=== PATIENT | female | born 1935 | race Caucasian/White ===

== ENCOUNTER 2021-09-11 11:29 | Emergency (ER) | payer MEDICARE ==
[~2021-09-11] VITALS: Ht 162.6 cm; Wt 92.5 kg
[~2021-09-11 11:29] MED LIST: AMLO-257 PO; APIX5TAB PO; ASPI-556 PO; DORZ10DR10 OP; FOLI1TAB85 PO; FURO20TA6 PO; GLIP-162 PO; L-THYROXINE PO; LATA2.5D14 OP; LOSA25TA41 PO; METO50 PO; OMEP20TA2 PO; ROSU20TA23 PO; VIT D PO; VIT1CAPS47 PO
[2021-09-11 12:22] LABS: BASOPHILS % (AUTO) 0.2 % (0.0-5.0); HEMATOCRIT 28.7 % (36-48); LYMPHOCYTES % (AUTO) 18.8 % (21.0-51.0); MEAN CORPUSCULAR HEMOGLOBIN 29.3 pg (27.0-33.0); MEAN CORPUSCULAR HGB CONC 33.1 g/dL (32.0-36.0); MEAN CORPUSCULAR VOLUME 88.6 fL (79-99); MONOCYTES % (AUTO) 8.8 % (3.0-13.0); PLATELET COUNT (AUTO) 143 K/uL (130-400); RED BLOOD CELL COUNT(AUTO) 3.24 MIL/uL (4.00-5.50); RED CELL DISTRIBUTION WIDTH 13.6 % (11.0-15.5)
[2021-09-11 12:29] LABS: APPEARANCE,URINE CLOUDY (CLEAR); BILIRUBIN,URINE NEGATIVE (NEGATIVE); COLOR,URINE YELLOW (YELLOW); GLUCOSE, URINE (UA) NEGATIVE (NEGATIVE); KETONES,URINE 5 mg/dL (NEGATIVE); LEUKOCYTE ESTERASE ,URINE SMALL (NEGATIVE); NITRATE,URINE NEGATIVE (NEGATIVE); OCCULT BLOOD,URINE NEGATIVE (NEGATIVE); PROTEIN,URINE TRACE mg/dL (NEGATIVE); UROBILINOGEN,URINE 0.2 mg/dL (0.2-1.0)
[2021-09-11 12:38] LABS: BILIRUBIN,TOTAL 1.1 mg/dL (0.2-1.0); CREATININE 1.9 mg/dL (0.5-1.5); POTASSIUM 3.8 mmol/L (3.5-5.1); TOTAL PROTEIN, SERUM 6.9 g/dL (6.0-8.3)
[2021-09-11 12:45] LABS: BACTERIA,URINE Rare /HPF (None Seen); RBC,URINE 0-1 /HPF (0-1); SQUAMOUS EPITHELIAL CELL,UR Few /HPF (0-2); WBC,URINE 0-1 /HPF (0-1)
[2021-09-11 13:20] VITALS: BP 136/87
== END 2021-09-11 13:22 | disposition home or self-care (01) ==
LOC: EDH 11:29
DX: E83.51 Hypocalcemia (principal); E88.09 Other disorders of plasma-protein metabolism, not elsewhere classified; E78.5 Hyperlipidemia, unspecified; E11.9 Type 2 diabetes mellitus without complications; I10 Essential (primary) hypertension; I25.10 Atherosclerotic heart disease of native coronary artery without angina pectoris; E66.9 Obesity, unspecified; Z79.01 Long term (current) use of anticoagulants; Z79.82 Long term (current) use of aspirin; Z79.84 Long term (current) use of oral hypoglycemic drugs; Z79.899 Other long term (current) drug therapy
CPT/HCPCS: 36415; 71045; 80053; 81001; 84484; 85025

== ENCOUNTER 2021-10-02 14:25 | Inpatient (IN) | payer MEDICARE ==
[~2021-10-02] VITALS: Ht 162.6 cm; Wt 93.5 kg
[2021-10-02] MEDS ORDERED: 0.9%NACL 1000ML 1,000 ML IV ONE (14:30)
[2021-10-02] MEDS ORDERED: DILTIAZEM 125 MG/25 ML INJ IV ONE (14:34)
[2021-10-02] MEDS ORDERED: 0.9%NACL 100ML 100 ML ONE ×2 (14:34→20:31)
[2021-10-02 14:39] LABS: BASOPHILS % (AUTO) 0.3 % (0.0-5.0); EOSINOPHILS % (AUTO) 0.3 % (0.0-8.0); HEMATOCRIT 32.3 % (36-48); LYMPHOCYTES % (AUTO) 10.5 % (21.0-51.0); MEAN CORPUSCULAR HEMOGLOBIN 28.5 pg (27.0-33.0); MEAN CORPUSCULAR HGB CONC 31.3 g/dL (32.0-36.0); MEAN CORPUSCULAR VOLUME 91.2 fL (79-99); MONOCYTES % (AUTO) 7.1 % (3.0-13.0); NEUTROPHILS % (AUTO) 81.4 % (40.0-77.0); PLATELET COUNT (AUTO) 356 K/uL (130-400); RED BLOOD CELL COUNT(AUTO) 3.54 MIL/uL (4.00-5.50); RED CELL DISTRIBUTION WIDTH 14.2 % (11.0-15.5); WHITE BLOOD COUNT (AUTO) 11.1 K/uL (4.8-10.8)
[2021-10-02 14:51] LABS: INR 1.26 (0.85-1.15); PROTHROMBIN TIME 13.4 SEC (9.6-11.6)
[2021-10-02 14:53] LABS: PARTIAL THROMBOPLASTIN TIME 28.8 SEC (26.3-35.5)
[2021-10-02 14:56] LABS: CREATININE 1.8 mg/dL (0.5-1.5); POTASSIUM 4.9 mmol/L (3.5-5.1)
[2021-10-02] MEDS ORDERED: DILTIAZEM 125MG+100 ML NS 125 ML IV SCH (15:00)
[2021-10-02 15:11] LABS: ALBUMIN 2.5 g/dL (3.5-5.0); BILIRUBIN,TOTAL 0.8 mg/dL (0.2-1.0); TOTAL PROTEIN, SERUM 7.9 g/dL (6.0-8.3)
[2021-10-02 15:13] LABS: THYROID STIMULATING HORMONE 8.63 uIU/mL (0.36-3.74)
[2021-10-02] MEDS ORDERED: FUROSEMIDE 20MG VIAL IV ONE (15:30)
[2021-10-02] MEDS ORDERED: PANTOPRAZOLE 40 MG TAB DR PO SCH (17:30)
[2021-10-02] MEDS ORDERED: ACETAMINOPHEN 325 MG TAB PO PRN (17:30)
[2021-10-02] MEDS ORDERED: ONDANSETRON 4MG INJ IVP PRN (17:30)
[2021-10-02 18:07] LABS: CRP QUANTITATIVE 171.1 mg/L (0.00-9.0); MAGNESIUM 0.8 mg/dL (1.80-2.40)
[2021-10-02] MEDS: MAGNESIUM 2GM PREMIX 50ML 50 ML IV SCH (18:33)
[2021-10-02] MEDS: CEFTRIAXONE 1G VIAL IVP SCH (20:12)
[2021-10-02] MEDS: DOXYCYCLINE 100MG+NS 250ML IV SCH (20:25)
[2021-10-02] MEDS: 0.9% NACL 250ML IVPB SCH (20:25)
[2021-10-02] MEDS ORDERED: HEPARIN 25,000 UNITS/250ML D5W 250 ML IV ONE (20:30)
[2021-10-02] MEDS ORDERED: HEPARIN 5,000 UNIT VIAL ONE (21:50)
[2021-10-02] MEDS ORDERED: HEPARIN 5,000 UNIT VIAL SQ SCH (22:00)
[2021-10-02] MEDS: HEPARIN 25,000 UNITS/250ML D5W 250 ML IV SCH (22:00)
[2021-10-02] MEDS ORDERED: FUROSEMIDE 20MG VIAL IV SCH (22:00)
[2021-10-03 00:09] LABS: ABG BASE EXCESS -0.6 mmol/L (-2.0-3.0); ABG PCO2 39 mmHg (32-45)
[2021-10-03 00:25] VITALS: BP 135/65
[2021-10-03] MEDS ORDERED: DIGOXIN 250 MCG/ML 2ML AMP IV ONE ×2 (00:35→01:00)
[2021-10-03] MEDS: FUROSEMIDE 20MG VIAL IV SCH ×2 (01:08→12:27)
[2021-10-03 04:04] VITALS: BP 112/57
[2021-10-03 05:13] LABS: HEMATOCRIT 27.5 % (36-48); MEAN CORPUSCULAR HEMOGLOBIN 28.9 pg (27.0-33.0); MEAN CORPUSCULAR HGB CONC 31.3 g/dL (32.0-36.0); MEAN CORPUSCULAR VOLUME 92.3 fL (79-99); RED BLOOD CELL COUNT(AUTO) 2.98 MIL/uL (4.00-5.50); RED CELL DISTRIBUTION WIDTH 14.4 % (11.0-15.5); WHITE BLOOD COUNT (AUTO) 7.7 K/uL (4.8-10.8)
[2021-10-03 05:39] LABS: CREATININE 1.4 mg/dL (0.5-1.5); MAGNESIUM 1.9 mg/dL (1.80-2.40); POTASSIUM 4.4 mmol/L (3.5-5.1)
[2021-10-03] MEDS ORDERED: DIGOXIN 250 MCG/ML 2ML AMP IV SCH ×2 (06:00→07:00)
[2021-10-03] MEDS: DOXYCYCLINE 100MG+NS 250ML IV SCH ×2 (06:01→17:51)
[2021-10-03] MEDS: 0.9% NACL 250ML IVPB SCH ×2 (06:01→17:51)
[2021-10-03] MEDS: HEPARIN 25,000 UNITS/250ML D5W 250 ML IV SCH ×2 (06:13→21:28)
[2021-10-03 08:30] VITALS: BP 104/36
[2021-10-03 09:22] LABS: HEMATOCRIT 29.8 % (36-48)
[2021-10-03] MEDS: PANTOPRAZOLE 40 MG TAB DR PO SCH (09:59)
[2021-10-03] MEDS: METOPROLOL TARTRATE 50 MG TAB PO SCH ×2 (09:59→21:19)
[2021-10-03] MEDS: DIGOXIN 125 MCG TABLET PO SCH (10:01)
[2021-10-03] MEDS: INSULIN HUMULIN R 100 UNIT/ML 3ML SQ SCH ×3 (11:26→21:00)
[2021-10-03 11:32] VITALS: BP 112/62
[2021-10-03] MEDS: MAGNESIUM 2GM PREMIX 50ML 50 ML IV SCH (12:28)
[2021-10-03] MEDS ORDERED: POTASSIUM CHLORIDE 10% ELIXIR 20 MEQ/15 ML UDCUP PO PRN (12:30)
[2021-10-03] MEDS ORDERED: KCL 20 MEQ ERTAB PO PRN (12:30)
[2021-10-03] MEDS ORDERED: MAGNESIUM 2GM PREMIX 50ML 50 ML IV PRN (12:30)
[2021-10-03] MEDS ORDERED: POTASSIUM CHLORIDE 20MEQ/100ML 100 ML IV PRN (12:30)
[2021-10-03] MEDS ORDERED: LIDOCAINE HCL-MPF 1% 2ML VIAL IV PRN (12:30)
[2021-10-03] MEDS ORDERED: METO200T49 PO (14:31)
[2021-10-03] MEDS ORDERED: MAGN250T10 PO (15:29)
[2021-10-03] MEDS ORDERED: ATOR40TA69 PO (15:38)
[2021-10-03] MEDS ORDERED: CALC-322 PO (15:38)
[2021-10-03] MEDS ORDERED: CINN500C PO (15:38)
[2021-10-03 16:30] VITALS: BP 119/66
[2021-10-03] MEDS: CEFTRIAXONE 1G VIAL IVP SCH (17:51)
[2021-10-03 20:00] VITALS: BP 136/60
[2021-10-03 22:50] LABS: INR 1.23 (0.85-1.15); PROTHROMBIN TIME 13.2 SEC (9.6-11.6)
[2021-10-03 22:51] LABS: PARTIAL THROMBOPLASTIN TIME 62.8 SEC (26.3-35.5)
[2021-10-04] VITALS: BP 137/72
[2021-10-04] MEDS: FUROSEMIDE 20MG VIAL IV SCH ×4 (00:43→20:41)
[2021-10-04 04:00] VITALS: BP 163/73
[2021-10-04] MEDS: DOXYCYCLINE 100MG+NS 250ML IV SCH ×2 (05:13→17:58)
[2021-10-04] MEDS: 0.9% NACL 250ML IVPB SCH ×2 (05:13→17:58)
[2021-10-04 05:32] LABS: HEMOGLOBIN A1C 5.8 % (4.0-6.0)
[2021-10-04 05:35] LABS: CREATININE 1.5 mg/dL (0.5-1.5); POTASSIUM 4.8 mmol/L (3.5-5.1)
[2021-10-04 06:09] LABS: BASOPHILS % (AUTO) 0.4 % (0.0-5.0); EOSINOPHILS % (AUTO) 1.5 % (0.0-8.0); HEMATOCRIT 31.3 % (36-48); LYMPHOCYTES % (AUTO) 14.3 % (21.0-51.0); MEAN CORPUSCULAR HEMOGLOBIN 29.1 pg (27.0-33.0); MONOCYTES % (AUTO) 7.5 % (3.0-13.0); NEUTROPHILS % (AUTO) 75.4 % (40.0-77.0); PLATELET COUNT (AUTO) 337 K/uL (130-400); RED BLOOD CELL COUNT(AUTO) 3.33 MIL/uL (4.00-5.50); RED CELL DISTRIBUTION WIDTH 14.6 % (11.0-15.5)
[2021-10-04] MEDS: INSULIN HUMULIN R 100 UNIT/ML 3ML SQ SCH ×4 (06:32→20:40)
[2021-10-04 08:00] VITALS: BP 148/69
[2021-10-04] MEDS: DIGOXIN 125 MCG TABLET PO SCH (09:07)
[2021-10-04] MEDS: METOPROLOL TARTRATE 50 MG TAB PO SCH ×2 (09:07→20:41)
[2021-10-04] MEDS: PANTOPRAZOLE 40 MG TAB DR PO SCH (09:07)
[2021-10-04] MEDS ORDERED: IPRATROPIUM/ALBUTEROL SULFATE 3 ML SOLUTION IH PRN (11:00)
[2021-10-04 11:54] VITALS: BP 131/58
[2021-10-04] MEDS ORDERED: FLUTICASONE PROPIONATE 50MCG/SPRAY 16 GM BOTTLE EN SCH (12:15)
[2021-10-04] MEDS ORDERED: FUROSEMIDE 20MG VIAL IV SCH (14:00)
[2021-10-04] MEDS: IPRATROPIUM 0.5 MG/2.5 ML INH IH SCH ×2 (14:09→18:10)
[2021-10-04 16:00] VITALS: BP 139/68
[2021-10-04] MEDS: CEFTRIAXONE 1G VIAL IVP SCH (16:54)
[2021-10-04 20:00] VITALS: BP 150/77
[2021-10-04] MEDS: APIXABAN 2.5 MG TABLET PO SCH (20:41)
[2021-10-04] MEDS: FLUTICASONE PROPIONATE 50MCG/SPRAY 16 GM BOTTLE EN SCH (20:50)
[2021-10-05] VITALS (7 sets, daily range): BP systolic 121–149; BP diastolic 55–95
[2021-10-05] MEDS: INSULIN HUMULIN R 100 UNIT/ML 3ML SQ SCH ×4 (05:30→20:12)
[2021-10-05] MEDS: DOXYCYCLINE 100MG+NS 250ML IV SCH ×2 (05:40→18:23)
[2021-10-05] MEDS: FUROSEMIDE 20MG VIAL IV SCH ×3 (05:41→22:33)
[2021-10-05] MEDS: 0.9% NACL 250ML IVPB SCH ×2 (05:41→18:23)
[2021-10-05] MEDS: IPRATROPIUM 0.5 MG/2.5 ML INH IH SCH ×4 (06:55→23:27)
[2021-10-05 07:10] LABS: BASOPHILS % (AUTO) 0.3 % (0.0-5.0); HEMATOCRIT 32.4 % (36-48); LYMPHOCYTES % (AUTO) 13.5 % (21.0-51.0); MEAN CORPUSCULAR HEMOGLOBIN 28.2 pg (27.0-33.0); MEAN CORPUSCULAR HGB CONC 30.2 g/dL (32.0-36.0); MEAN CORPUSCULAR VOLUME 93.4 fL (79-99); MONOCYTES % (AUTO) 9.7 % (3.0-13.0); NEUTROPHILS % (AUTO) 75.1 % (40.0-77.0); PLATELET COUNT (AUTO) 292 K/uL (130-400); RED BLOOD CELL COUNT(AUTO) 3.47 MIL/uL (4.00-5.50); RED CELL DISTRIBUTION WIDTH 14.5 % (11.0-15.5); WHITE BLOOD COUNT (AUTO) 6.9 K/uL (4.8-10.8)
[2021-10-05 07:34] LABS: CREATININE 1.5 mg/dL (0.5-1.5); MAGNESIUM 1.4 mg/dL (1.80-2.40); POTASSIUM 4.7 mmol/L (3.5-5.1)
[2021-10-05] MEDS: METOPROLOL TARTRATE 50 MG TAB PO SCH ×2 (09:15→20:01)
[2021-10-05] MEDS: PANTOPRAZOLE 40 MG TAB DR PO SCH (09:15)
[2021-10-05] MEDS: DIGOXIN 125 MCG TABLET PO SCH (09:15)
[2021-10-05] MEDS: APIXABAN 2.5 MG TABLET PO SCH ×2 (09:16→20:01)
[2021-10-05] MEDS: FLUTICASONE PROPIONATE 50MCG/SPRAY 16 GM BOTTLE EN SCH ×2 (09:16→20:12)
[2021-10-05] MEDS: CEFTRIAXONE 1G VIAL IVP SCH (16:43)
[2021-10-05] MEDS: DILTIAZEM 125MG+100 ML NS 125 ML IV PRN (21:39)
[2021-10-06 03:14] VITALS: BP 136/63
[2021-10-06 05:05] LABS: CREATININE 1.4 mg/dL (0.5-1.5); POTASSIUM 4.4 mmol/L (3.5-5.1)
[2021-10-06] MEDS: DOXYCYCLINE 100MG+NS 250ML IV SCH ×2 (05:11→18:23)
[2021-10-06] MEDS: FUROSEMIDE 20MG VIAL IV SCH ×3 (05:11→21:02)
[2021-10-06] MEDS: 0.9% NACL 250ML IVPB SCH ×2 (05:11→18:23)
[2021-10-06] MEDS: INSULIN HUMULIN R 100 UNIT/ML 3ML SQ SCH ×4 (05:48→21:00)
[2021-10-06] MEDS: METOPROLOL TARTRATE 50 MG TAB PO SCH ×2 (05:57→21:03)
[2021-10-06] MEDS: DIGOXIN 125 MCG TABLET PO SCH (05:57)
[2021-10-06] MEDS: IPRATROPIUM 0.5 MG/2.5 ML INH IH SCH ×3 (06:44→18:22)
[2021-10-06 08:16] VITALS: BP 144/68
[2021-10-06] MEDS: FLUTICASONE PROPIONATE 50MCG/SPRAY 16 GM BOTTLE EN SCH ×2 (09:00→21:03)
[2021-10-06] MEDS: APIXABAN 2.5 MG TABLET PO SCH ×2 (09:00→21:03)
[2021-10-06] MEDS: PANTOPRAZOLE 40 MG TAB DR PO SCH (09:00)
[2021-10-06 12:40] VITALS: BP 129/59
[2021-10-06] MEDS ORDERED: FENTANYL CITRATE PF 50 MCG/1 ML 2ML VIAL ONE (13:08)
[2021-10-06] MEDS ORDERED: MIDAZOLAM HCL 1 MG/ML 2ML VIAL ONE (13:08)
[2021-10-06] MEDS ORDERED: LIDOCAINE HCL 2% VISCOUS 15 ML UDCUP ONE ×2 (14:02→14:03)
[2021-10-06 16:17] VITALS: BP 123/45
[2021-10-06] MEDS: DILTIAZEM 125MG+100 ML NS 125 ML IV PRN (18:21)
[2021-10-06] MEDS: CEFTRIAXONE 1G VIAL IVP SCH (18:22)
[2021-10-06 19:00] VITALS: BP 143/72
[2021-10-07] VITALS: BP 114/59
[2021-10-07] MEDS: IPRATROPIUM 0.5 MG/2.5 ML INH IH SCH ×3 (00:28→11:46)
[2021-10-07 04:00] VITALS: BP 131/62
[2021-10-07] MEDS: 0.9% NACL 250ML IVPB SCH (06:18)
[2021-10-07] MEDS: DOXYCYCLINE 100MG+NS 250ML IV SCH (06:18)
[2021-10-07] MEDS: FUROSEMIDE 20MG VIAL IV SCH ×2 (06:19→14:40)
[2021-10-07] MEDS: INSULIN HUMULIN R 100 UNIT/ML 3ML SQ SCH ×3 (06:38→16:30)
[2021-10-07 07:47] VITALS: BP 136/59
[2021-10-07 09:16] LABS: INR 1.24 (0.85-1.15); PROTHROMBIN TIME 13.3 SEC (9.6-11.6)
[2021-10-07 09:18] LABS: PARTIAL THROMBOPLASTIN TIME 33.4 SEC (26.3-35.5)
[2021-10-07] MEDS: METOPROLOL TARTRATE 50 MG TAB PO SCH (09:23)
[2021-10-07] MEDS: APIXABAN 2.5 MG TABLET PO SCH (09:23)
[2021-10-07] MEDS: FLUTICASONE PROPIONATE 50MCG/SPRAY 16 GM BOTTLE EN SCH (09:24)
[2021-10-07] MEDS: DIGOXIN 125 MCG TABLET PO SCH (09:24)
[2021-10-07] MEDS: PANTOPRAZOLE 40 MG TAB DR PO SCH (09:24)
[2021-10-07 09:47] LABS: HEMATOCRIT 30.8 % (36-48); MEAN CORPUSCULAR HGB CONC 31.5 g/dL (32.0-36.0); MEAN CORPUSCULAR VOLUME 92.2 fL (79-99); RED BLOOD CELL COUNT(AUTO) 3.34 MIL/uL (4.00-5.50); RED CELL DISTRIBUTION WIDTH 14.6 % (11.0-15.5); WHITE BLOOD COUNT (AUTO) 6.9 K/uL (4.8-10.8)
[2021-10-07] MEDS: DILTIAZEM 125MG+100 ML NS 125 ML IV PRN (09:53)
[2021-10-07 09:55] LABS: CREATININE 1.5 mg/dL (0.5-1.5); POTASSIUM 4.1 mmol/L (3.5-5.1)
[2021-10-07 11:58] VITALS: BP 113/55
[2021-10-07 15:36] VITALS: BP 134/61
[2021-11-17] MEDS ORDERED: CINN1CAP PO (10:02)
[2021-11-17] MEDS ORDERED: LEVO-172 PO (10:02)
[2021-11-17] MEDS ORDERED: DRON400T7 PO (10:03)
[2021-11-17] MEDS ORDERED: APIX2.5T PO (10:03)
[2021-11-17] MEDS ORDERED: FURO20TA4 PO (10:03)
[2021-11-17] MEDS ORDERED: CHOL100040 PO (10:03)
[2021-11-17] MEDS ORDERED: VITA1CAP85 PO (10:05)
== END 2021-10-07 18:30 | disposition home or self-care (01) | DRG 291 ==
LOC: EDH 14:25 → EDHIP 16:54 → 4CH 10-03 00:32 → 4BH 10-03 18:00 → 4DH 10-05 06:26
PROVIDERS: ADMIT Internal Medicine; ATTEND Internal Medicine
PROC: 0W9B3ZZ Drainage of Left Pleural Cavity, Percutaneous Approach (ICD-10-PCS; principal; 2021-10-03)
DX: I13.0 Hypertensive heart and chronic kidney disease with heart failure and stage 1 through stage 4 chronic kidney disease, or unspecified chronic kidney disease (principal); J96.01 Acute respiratory failure with hypoxia; I50.31 Acute diastolic (congestive) heart failure; N17.9 Acute kidney failure, unspecified; J98.11 Atelectasis; I31.3 Pericardial effusion (noninflammatory); R65.10 Systemic inflammatory response syndrome (SIRS) of non-infectious origin without acute organ dysfunction; J91.8 Pleural effusion in other conditions classified elsewhere; I48.92 Unspecified atrial flutter; I48.0 Paroxysmal atrial fibrillation; R79.89 Other specified abnormal findings of blood chemistry; Z20.822 Contact with and (suspected) exposure to COVID-19; E07.81 Sick-euthyroid syndrome; E11.22 Type 2 diabetes mellitus with diabetic chronic kidney disease; E66.9 Obesity, unspecified; E78.00 Pure hypercholesterolemia, unspecified; E78.5 Hyperlipidemia, unspecified; I25.10 Atherosclerotic heart disease of native coronary artery without angina pectoris; K21.9 Gastro-esophageal reflux disease without esophagitis; K80.20 Calculus of gallbladder without cholecystitis without obstruction; E83.42 Hypomagnesemia; N18.9 Chronic kidney disease, unspecified; Z68.35 Body mass index [BMI] 35.0-35.9, adult; Z79.01 Long term (current) use of anticoagulants; Z79.899 Other long term (current) drug therapy; Z90.12 Acquired absence of left breast and nipple; Z85.3 Personal history of malignant neoplasm of breast; Z83.3 Family history of diabetes mellitus; Z82.49 Family history of ischemic heart disease and other diseases of the circulatory system; Z82.3 Family history of stroke; Z82.5 Family history of asthma and other chronic lower respiratory diseases; Z82.0 Family history of epilepsy and other diseases of the nervous system
CPT/HCPCS: 36415; 36600; 70450; 71045; 71046; 71250; 78582; 80048; 80053; 82435; 82728; 82803; 82947; 82948; 83036; 83540; 83550; 83605; 83615; 83735; 83880; 84132; 84145; 84295; 84443; 84481; 84484; 85014; 85018; 85025; 85027; 85378; 85610; 85730; 86140; 87635; 87804; 93005; 93306; 93356; 93970; 94640; 94664; 94760; 97039; 99291; A9540; A9558; G0378; J0696; J1160; J1644; J1815; J1940; J2250; J3010; J3475; J3490; J7050

== ENCOUNTER 2021-11-26 09:28 | Day surgery (SDC) | payer OTHER ==
[~2021-11-26 09:28] MED LIST changes: -AMLO-257 PO; +APIX2.5T PO; -APIX5TAB PO; +ATOR40TA69 PO; +CALC-322 PO; +CHOL100040 PO; +CINN1CAP PO; -DORZ10DR10 OP; +DRON400T7 PO; +FURO20TA4 PO; -FURO20TA6 PO; -L-THYROXINE PO; -LATA2.5D14 OP; +LEVO-172 PO; -LOSA25TA41 PO; +MAGN250T10 PO; +METO200T49 PO; -METO50 PO; -OMEP20TA2 PO; -ROSU20TA23 PO; -VIT D PO; +VITA1CAP85 PO
[2021-11-26 10:04] LABS: TOTAL PROTEIN, SERUM 7.7 g/dL (6.0-8.3)
[2021-11-26 10:06] LABS: INR 1.12 (0.85-1.15); PROTHROMBIN TIME 12.1 SEC (9.6-11.6)
[2021-11-26 10:07] LABS: PARTIAL THROMBOPLASTIN TIME 31.6 SEC (26.3-35.5)
[2021-11-26] MEDS ORDERED: LIDOCAINE HCL 1% 20 ML VIAL ONE (10:15)
[2021-11-26 13:32] LABS: APPEARANCE BODY FLUID CLEAR (CLEAR); BODY FLUID RBC 200 /cu. mm.; BODY FLUID WBC 769 /cu. mm.; COLOR,BODY FLUID YELLOW (LT YELLOW); SPECIMENTYPE,BODY FLUID PLEURAL; TOTAL VOLUME,BODY FLUID 850 mL
[2021-11-26 14:29] LABS: BF LYMPHOCYTE 93 %; BF MESOTHELIAL 4 %; BF MONOCYTE 1 %
== END 2021-11-26 12:45 | disposition home or self-care (01) ==
LOC: DAH 09:28
PROVIDERS: ATTEND Internal Medicine
DX: J90 Pleural effusion, not elsewhere classified (principal); I11.0 Hypertensive heart disease with heart failure; I50.9 Heart failure, unspecified; E11.9 Type 2 diabetes mellitus without complications; E66.9 Obesity, unspecified; Z79.01 Long term (current) use of anticoagulants; Z79.82 Long term (current) use of aspirin; Z79.899 Other long term (current) drug therapy; Z85.3 Personal history of malignant neoplasm of breast; Z68.34 Body mass index [BMI] 34.0-34.9, adult
CPT/HCPCS: 32555; 36415; 71045; 76604; 82945; 83615 ×2; 84155; 84157; 85610; 85730; 87071; 87116; 87205; 87206; 88112; 88305; 88341; 88342; 89051; A4606; A4615; A4663; C1729; 32557

== ENCOUNTER 2023-05-29 21:43 | Inpatient (IN) | payer OTHER ==
[~2023-05-29] VITALS: Ht 162.6 cm; Wt 83.9 kg
[2023-05-29] MEDS ORDERED: ACETAMINOPHEN 650 MG SUPPOSITORY RC ONE (21:48)
[2023-05-29] MEDS ORDERED: ONDANSETRON 4MG INJ ONE (21:48)
[2023-05-29 21:55] VITALS: TEMP 103.1
[2023-05-29] MEDS ORDERED: 0.9%NACL 1000ML 2,500 ML IV ONE (22:00)
[2023-05-29 22:19] LABS: APPEARANCE,URINE CLOUDY (CLEAR); BILIRUBIN,URINE NEGATIVE (NEGATIVE); COLOR,URINE LIGHT-YELLOW (YELLOW); GLUCOSE, URINE (UA) NEGATIVE (NEGATIVE); KETONES,URINE NEGATIVE (NEGATIVE); LEUKOCYTE ESTERASE ,URINE 500 Leu/uL (NEGATIVE); NITRATE,URINE NEGATIVE (NEGATIVE); PROTEIN,URINE 30 mg/dL (NEGATIVE); UROBILINOGEN,URINE 0.2 mg/dL (0.2-1.0)
[2023-05-29 22:21] LABS: BACTERIA,URINE FEW /HPF (None Seen); MUCUS,URINE RARE LPF (None Seen); WBC,URINE 51-100 /HPF (0-1)
[2023-05-29] MEDS ORDERED: MEROPENEM 500 MG in 0.9%NACL 100ML 100 ML IV SCH (22:30)
[2023-05-29 22:31] LABS: BASOPHILS % (AUTO) 0.1 % (0.0-5.0); HEMATOCRIT 30.4 % (36-48); LYMPHOCYTES % (AUTO) 3.7 % (21.0-51.0); MEAN CORPUSCULAR HEMOGLOBIN 29.4 pg (27.0-33.0); MEAN CORPUSCULAR HGB CONC 31.6 g/dL (32.0-36.0); MONOCYTES % (AUTO) 6.3 % (3.0-13.0); NEUTROPHILS % (AUTO) 88.5 % (40.0-77.0); PLATELET COUNT (AUTO) 81 K/uL (130-400); RED BLOOD CELL COUNT(AUTO) 3.27 MIL/uL (4.00-5.50); RED CELL DISTRIBUTION WIDTH 14.5 % (11.0-15.5); WHITE BLOOD COUNT (AUTO) 8.3 K/uL (4.8-10.8)
[2023-05-29 22:36] LABS: CREATININE 2.2 mg/dL (0.5-1.5); POTASSIUM 4.2 mmol/L (3.5-5.1)
[2023-05-29 22:45] LABS: INR 1.06 (0.85-1.15); PROTHROMBIN TIME 12.2 SEC (9.6-11.6)
[2023-05-29 22:46] LABS: PARTIAL THROMBOPLASTIN TIME 27.1 SEC (26.3-35.5)
[2023-05-29 22:50] LABS: ABG BASE EXCESS -4.6 mmol/L (-2.0-3.0); ABG HCO3 20.5 mmol/L (21.0-28.0); ABG OXYGEN SATURATION 98.3 % (95.0-99.0); ABG PCO2 39 mmHg (32-45)
[2023-05-29 22:54] LABS: ALBUMIN 3.2 g/dL (3.5-5.0); MAGNESIUM 1.6 mg/dL (1.80-2.40); TOTAL PROTEIN, SERUM 6.8 g/dL (6.0-8.3)
[2023-05-29] MEDS ORDERED: MEROPENEM 500 MG VIAL ONE (23:20)
[2023-05-29] MEDS ORDERED: ACETAMINOPHEN 650 MG SUPPOSITORY RC PRN (23:30)
[2023-05-29] MEDS ORDERED: MAGNESIUM 2GM PREMIX 50ML 50 ML IV PRN (23:30)
[2023-05-29] MEDS: ZOSYN 3.375GM+NS 50ML 50 ML IVPB SCH (23:30)
[2023-05-29] MEDS ORDERED: POTASSIUM CHLORIDE 20MEQ/100ML 100 ML IV PRN (23:30)
[2023-05-29] MEDS ORDERED: HYDROMORPHONE 1 MG INJ IV PRN (23:30)
[2023-05-29] MEDS ORDERED: ONDANSETRON 4MG INJ IV PRN (23:30)
[2023-05-29] MEDS ORDERED: 0.9%NACL 1000ML 1,434 ML IV ONE (23:30)
[2023-05-29] MEDS ORDERED: IPRATROPIUM/ALBUTEROL SULFATE 3 ML SOLUTION IH ONE (23:45)
[2023-05-29 23:58] LABS: CREATININE,URINE RANDOM 55 mg/dL (30-135); SODIUM,URINE RANDOM 125 mmol/l (40-220)
[2023-05-30] VITALS (14 sets, daily range): BP systolic 120–143; BP diastolic 39–88; PULSE 64–83; RESP 16–20
[2023-05-30] MEDS: IPRATROPIUM/ALBUTEROL SULFATE 3 ML SOLUTION IH SCH ×5 (00:43→23:23)
[2023-05-30] MEDS: 0.9%NACL 1000ML 1,000 ML IV SCH ×2 (03:46→17:27)
[2023-05-30] MEDS: INSULIN HUMULIN R 100 UNIT/ML 3ML SQ SCH ×4 (05:40→21:00)
[2023-05-30 05:59] LABS: BASOPHILS % (AUTO) 0.1 % (0.0-5.0); EOSINOPHILS % (AUTO) 0.1 % (0.0-8.0); HEMATOCRIT 29.6 % (36-48); LYMPHOCYTES % (AUTO) 4.9 % (21.0-51.0); MEAN CORPUSCULAR HEMOGLOBIN 29.6 pg (27.0-33.0); MEAN CORPUSCULAR HGB CONC 31.4 g/dL (32.0-36.0); MEAN CORPUSCULAR VOLUME 94.3 fL (79-99); MONOCYTES % (AUTO) 7.6 % (3.0-13.0); NEUTROPHILS % (AUTO) 86.5 % (40.0-77.0); PLATELET COUNT (AUTO) 111 K/uL (130-400); RED BLOOD CELL COUNT(AUTO) 3.14 MIL/uL (4.00-5.50); RED CELL DISTRIBUTION WIDTH 14.8 % (11.0-15.5); WHITE BLOOD COUNT (AUTO) 14.4 K/uL (4.8-10.8)
[2023-05-30 06:13] LABS: CREATININE 2.5 mg/dL (0.5-1.5); MAGNESIUM 2.5 mg/dL (1.80-2.40); PHOSPHORUS 5.4 mg/dL (2.5-4.9); POTASSIUM 4.1 mmol/L (3.5-5.1)
[2023-05-30 06:16] LABS: HEMOGLOBIN A1C 5.5 % (4.0-6.0)
[2023-05-30] MEDS: ZOSYN 3.375GM+NS 50ML 50 ML IVPB SCH ×2 (10:35→23:56)
[2023-05-30] MEDS: PANTOPRAZOLE 40 MG/VIAL IVP SCH (10:35)
[2023-05-30] MEDS: HEPARIN 5,000 UNIT VIAL SQ SCH ×2 (10:37→21:15)
[2023-05-30] MEDS: DOXYCYCLINE HYCLATE 100 MG TABLET PO SCH (21:13)
[2023-05-30] MEDS ORDERED: SODIUM CHLORIDE 3% FOR INHALATION 4 ML/AMP VIAL.NEB IH ONE (22:47)
[2023-05-31] VITALS (10 sets, daily range): BP systolic 143–174; BP diastolic 63–89; PULSE 75–87; RESP 15–19
[2023-05-31 05:38] LABS: BASOPHILS % (AUTO) 0.1 % (0.0-5.0); EOSINOPHILS % (AUTO) 0.6 % (0.0-8.0); HEMATOCRIT 30.4 % (36-48); LYMPHOCYTES % (AUTO) 6.7 % (21.0-51.0); MEAN CORPUSCULAR HEMOGLOBIN 29.7 pg (27.0-33.0); MEAN CORPUSCULAR HGB CONC 30.9 g/dL (32.0-36.0); MEAN CORPUSCULAR VOLUME 96.2 fL (79-99); MONOCYTES % (AUTO) 5.7 % (3.0-13.0); NEUTROPHILS % (AUTO) 86.4 % (40.0-77.0); PLATELET COUNT (AUTO) 104 K/uL (130-400); RED BLOOD CELL COUNT(AUTO) 3.16 MIL/uL (4.00-5.50); RED CELL DISTRIBUTION WIDTH 15.2 % (11.0-15.5); WHITE BLOOD COUNT (AUTO) 7.9 K/uL (4.8-10.8)
[2023-05-31] MEDS: INSULIN HUMULIN R 100 UNIT/ML 3ML SQ SCH ×4 (06:10→20:40)
[2023-05-31 06:20] LABS: % IRON SATURATION 4.6 % (22-44); ALBUMIN 2.8 g/dL (3.5-5.0); CREATININE 2.6 mg/dL (0.5-1.5); POTASSIUM 4.3 mmol/L (3.5-5.1); TOTAL PROTEIN, SERUM 6.2 g/dL (6.0-8.3)
[2023-05-31] MEDS: IPRATROPIUM/ALBUTEROL SULFATE 3 ML SOLUTION IH SCH ×3 (07:16→19:55)
[2023-05-31] MEDS: DOXYCYCLINE HYCLATE 100 MG TABLET PO SCH ×2 (08:26→20:38)
[2023-05-31] MEDS: PANTOPRAZOLE 40 MG/VIAL IVP SCH (08:26)
[2023-05-31] MEDS: HEPARIN 5,000 UNIT VIAL SQ SCH ×2 (08:43→20:38)
[2023-05-31] MEDS: ZOSYN 3.375GM+NS 50ML 50 ML IVPB SCH ×2 (12:19→23:19)
[2023-06-01] VITALS (9 sets, daily range): BP systolic 112–190; BP diastolic 56–84; PULSE 71–88; RESP 16–20
[2023-06-01] MEDS: IPRATROPIUM/ALBUTEROL SULFATE 3 ML SOLUTION IH SCH ×3 (00:27→11:04)
[2023-06-01] MEDS: INSULIN HUMULIN R 100 UNIT/ML 3ML SQ SCH ×3 (05:17→16:30)
[2023-06-01 05:35] LABS: BASOPHILS % (AUTO) 0.1 % (0.0-5.0); EOSINOPHILS % (AUTO) 1.6 % (0.0-8.0); HEMATOCRIT 31.8 % (36-48); LYMPHOCYTES % (AUTO) 7.5 % (21.0-51.0); MEAN CORPUSCULAR HEMOGLOBIN 29.6 pg (27.0-33.0); MEAN CORPUSCULAR HGB CONC 30.5 g/dL (32.0-36.0); MONOCYTES % (AUTO) 7.8 % (3.0-13.0); NEUTROPHILS % (AUTO) 82.6 % (40.0-77.0); PLATELET COUNT (AUTO) 100 K/uL (130-400); RED BLOOD CELL COUNT(AUTO) 3.28 MIL/uL (4.00-5.50); RED CELL DISTRIBUTION WIDTH 15.1 % (11.0-15.5); WHITE BLOOD COUNT (AUTO) 6.8 K/uL (4.8-10.8)
[2023-06-01 06:01] LABS: ALBUMIN 2.6 g/dL (3.5-5.0); CREATININE 2.1 mg/dL (0.5-1.5); POTASSIUM 4.3 mmol/L (3.5-5.1); TOTAL PROTEIN, SERUM 6.6 g/dL (6.0-8.3)
[2023-06-01] MEDS ORDERED: LABETALOL 20MG VIAL IV PRN (09:00)
[2023-06-01] MEDS: PANTOPRAZOLE 40 MG/VIAL IVP SCH (09:24)
[2023-06-01] MEDS: DOXYCYCLINE HYCLATE 100 MG TABLET PO SCH (09:24)
[2023-06-01] MEDS: HEPARIN 5,000 UNIT VIAL SQ SCH (09:25)
[2023-06-01] MEDS ORDERED: DOCUSATE SODIUM 100 MG CAP PO SCH (10:50)
[2023-06-01] MEDS ORDERED: LACTULOSE 20 GM/30 ML UDCUP PO ONE (10:50)
[2023-06-01] MEDS: ZOSYN 3.375GM+NS 50ML 50 ML IVPB SCH (15:00)
== END 2023-06-01 18:30 | disposition home health service (06) | DRG 871 ==
LOC: EDH 21:43 → EDHIP 23:28 → 4DH 05-30 02:46
PROVIDERS: ADMIT Internal Medicine; ATTEND Internal Medicine
DX: A41.50 Gram-negative sepsis, unspecified (principal); G93.41 Metabolic encephalopathy; J18.9 Pneumonia, unspecified organism; N13.6 Pyonephrosis; N17.9 Acute kidney failure, unspecified; Z20.822 Contact with and (suspected) exposure to COVID-19; I48.91 Unspecified atrial fibrillation; E11.9 Type 2 diabetes mellitus without complications; B96.1 Klebsiella pneumoniae [K. pneumoniae] as the cause of diseases classified elsewhere; D64.9 Anemia, unspecified; E78.5 Hyperlipidemia, unspecified; E83.42 Hypomagnesemia; I10 Essential (primary) hypertension; Z80.3 Family history of malignant neoplasm of breast; Z82.0 Family history of epilepsy and other diseases of the nervous system; Z82.3 Family history of stroke; Z82.49 Family history of ischemic heart disease and other diseases of the circulatory system; Z82.5 Family history of asthma and other chronic lower respiratory diseases; Z83.3 Family history of diabetes mellitus; Z85.3 Personal history of malignant neoplasm of breast; Z90.12 Acquired absence of left breast and nipple; Z92.21 Personal history of antineoplastic chemotherapy; Z92.3 Personal history of irradiation
CPT/HCPCS: 36415; 36600; 70450; 71045; 76770; 80048; 80053; 81001; 82140; 82270; 82550; 82570; 82803; 82948; 83036; 83540; 83550; 83605; 83735; 83880; 83935; 84100; 84145; 84300; 84484; 85025; 85610; 85730; 87040; 87071; 87077; 87088; 87186; 87205; 87635; 87804; 92610; 93005; 94640; 94664; 97039; C9113; C9803; G0378; J1644; J2185; J2405; J2543; J3475; J3490

== ENCOUNTER → 2023-06-08 | Outpatient (CLI) | payer OTHER ==
[~2023-06-08] MED LIST changes: +ALBUTEROL 0.083% 2.5 MG/3 ML INH IH ONE
== END | disposition home or self-care (01) ==
LOC: RESP 13:00
PROVIDERS: ATTEND Internal Medicine Cardiovascular Disease
DX: R06.02 Shortness of breath (principal)
CPT/HCPCS: 94060; 94727; 94729

== ENCOUNTER → 2023-08-22 | Outpatient (CLI) | payer OTHER ==
[~2023-08-22] MED LIST changes: -ALBUTEROL 0.083% 2.5 MG/3 ML INH IH ONE; +REGADENOSON 0.4 MG/5 ML PF SYG IVP ONE
== END | disposition home or self-care (01) ==
LOC: SHCH 08:30
PROVIDERS: ATTEND Internal Medicine Cardiovascular Disease
DX: I48.0 Paroxysmal atrial fibrillation (principal)
CPT/HCPCS: 78452; 96374; 93017; J2785; A9500 ×2

== ENCOUNTER → 2023-09-26 | Outpatient (CLI) | payer OTHER ==
[~2023-09-26] MED LIST changes: -REGADENOSON 0.4 MG/5 ML PF SYG IVP ONE
== END | disposition home or self-care (01) ==
LOC: RAH 14:54
PROVIDERS: ATTEND Internal Medicine
DX: I50.32 Chronic diastolic (congestive) heart failure (principal); I51.7 Cardiomegaly; J90 Pleural effusion, not elsewhere classified
CPT/HCPCS: 71046

== ENCOUNTER → 2023-12-28 | Outpatient (CLI) | payer OTHER | END | disposition home or self-care (01) | LOC: RAH 12:14 | PROVIDERS: ATTEND Internal Medicine Nephrology | DX: K44.9 Diaphragmatic hernia without obstruction or gangrene (principal); J90 Pleural effusion, not elsewhere classified; J98.11 Atelectasis; N13.30 Unspecified hydronephrosis; I25.10 Atherosclerotic heart disease of native coronary artery without angina pectoris; N26.1 Atrophy of kidney (terminal); M47.815 Spondylosis without myelopathy or radiculopathy, thoracolumbar region | CPT/HCPCS: 74176 ==

== ENCOUNTER → 2024-01-09 | Outpatient (CLI) | payer OTHER | END | disposition home or self-care (01) | LOC: SHCH 13:17 | PROVIDERS: ATTEND Internal Medicine Cardiovascular Disease | DX: I48.0 Paroxysmal atrial fibrillation (principal); I08.3 Combined rheumatic disorders of mitral, aortic and tricuspid valves; E78.5 Hyperlipidemia, unspecified; E11.9 Type 2 diabetes mellitus without complications; I10 Essential (primary) hypertension; J90 Pleural effusion, not elsewhere classified | CPT/HCPCS: 93306 ==

== ENCOUNTER 2025-07-17 10:30 | Inpatient (IN) | payer OTHER ==
[2025-07-17] VITALS (8 sets, daily range): BP systolic 134; BP diastolic 64; PULSE 71–84; RESP 20–27; TEMP 97.6; O2SAT 94–98
[~2025-07-17] VITALS: Ht 162.6 cm; Wt 74.8 kg
[~2025-07-17 10:30] MED LIST changes: +ACET-2247 PO; +AMIO200T73 PO; -ASPI-556 PO; +BUME1TAB6 PO; -CALC-322 PO; +CEFA1VIA11 IJ; -CHOL100040 PO; -CINN1CAP PO; -DRON400T7 PO; +FOLI0.4T6 PO; -FOLI1TAB85 PO; -FURO20TA4 PO; -GLIP-162 PO; +LACT10PA5 PO; -LEVO-172 PO; -MAGN250T10 PO; -METO200T49 PO; +METO25TA6 PO; +NYST15CR34 TP; +PANT40TA54 PO; -VIT1CAPS47 PO; -VITA1CAP85 PO; +ZINC57OI3 TP; +[UNRECOGNIZED DRUG - CODE] IJ
--- NOTE | 2025-07-17 10:53 | EKG ---
Test Date: 2025-07-17 Test Time: 10:44:31 Pat Name: VINAY BAEZA Department: [facility] Room: 412 Gender: F Terrazzo Layer: [id number] : 1935 Requested By: ARIANNE TROY Order Number: [id number] Reading MD: Lawrence Lopez Measurements Intervals [place] Rate: 78 P: 59 GA: 196 QRS: -15 QRSD: 91 T: 0 QT: 363 QTc: 414 Interpretive Statements Sinus rhythm Inferior infarct, old Nonspecific T abnormalities, lateral leads Compared to ECG 06/13/2025 16:56:14 T-wave abnormality now present Myocardial infarct finding still present Electronically Signed On 07-18-2025 17:32:34 CDT by Lawrence Lopez Please click the below link to view image of tracing.
[2025-07-17 11:02] LABS: IMMATURE GRANULOCYTE ABSOLUTE 0.03 K/uL (0-1); NUCLEATED RED BLOOD CELLS 0.0 % (0.0-0.19); PLATELET COUNT (AUTO) 90 K/uL (130-400); RED BLOOD CELL COUNT(AUTO) 3.47 MIL/uL (4.00-5.50); RED CELL DISTRIBUTION WIDTH 18.7 % (11.0-15.5); WHITE BLOOD COUNT (AUTO) 4.3 K/uL (4.8-10.8)
[2025-07-17 11:11] LABS: CREATININE 3.5 mg/dL (0.5-1.0); GLOMERULAR FILTR. RATE CALC 12.0 mL/min (>90); GLUCOSE,RANDOM 111.0 mg/dL (70-105); SODIUM SERUM 134.0 mmol/L (136-145); UREA NITROGEN, BLOOD 23.0 mg/dL (7-18)
[2025-07-17 11:18] LABS: INR 1.16 (0.85-1.15)
--- NOTE | 2025-07-17 12:09 | NUR ---
PT HAS A MIDLINE IN SITU. THE DRESSING IS DATED 06/20/25,WILL BE CHANGING IT.THE WHITE CONNECTION ON THE WHITE LUMEN WAS CRACKED (CHANGED IT), THE LUMEN DOES NOT BLEED BACK, FLUSHED WITH 10 ML SALINE USING ASEPTIC TECHNIQUE. THE RED LUMEN'S CONNECTION ALSO CHANGED,THIS LUMEN BLEEDS BACK, FLUSHED WITH 10 ML SALINE USING ASEPIC TECHNIQUE.INFORMED JOSESITO uRsso Addendum: 07/17/25 at 1854 by EPIGLERGUE JOSESITO ACUÑA ADVISED IT IS OK TO USE THE MIDLINE
--- NOTE | 2025-07-17 12:26 | ERN ---
ED Note History of Present Illness Stated Complaint: OTHER Chief Complaint: Other Problems Time Seen by MD: 10:40 Time Seen by Midlevel: 10:44 Dictation: 89-year-old female with a history of end-stage renal disease, cholesterol, sent from the [facility] for shortness a breath. Apparently patient was found without her nasal cannula and had O2 sat of 87. Patient at that time had WOB,, they reoriented the patient and put her on the nasal cannula and was sent here to rule out a pulmonary embolism. Patient at the time of my assessment is awake alert and oriented, mild respiratory distress, nasal cannula at 2 L, vital signs within normal range, satting 98%. Allergies: Coded Allergies: No Known Drug Allergies (Unverified Allergy, 07/23/13) Home Meds Reported Medications Folic Acid (Folic Acid) 0.4 Mg Tablet, 1 TAB PO BID for 30 Days, #30 TAB 0 Refills 06/30/25 Cefazolin Sodium (Cefazolin Sodium) 1 Gram Vial, 1 GM IJ AD, VIAL 06/30/25 Lactulose (Lactulose) 10 Gram Packet, 20 GM PO [id number] for NEEDED FOR BOWEL MOVEMENT, PKT 06/30/25 Acetaminophen (Tylenol) 325 Mg Tablet, 325 MG PO Q4PRN for MILD PAIN, TAB 06/30/25 Epoetin Merrick (Procrit) 20,000 Unit/Ml Vial, 28092 UNIT IJ AD, VIAL 06/30/25 Pantoprazole Sodium (Pantoprazole Sodium) 40 Mg Tablet.dr, 40 MG PO DAILY, TAB 06/30/25 Amiodarone HCl (Amiodarone HCl) 200 Mg Tablet, 200 MG PO DAILY, TAB 06/30/25 Metoprolol Tartrate (Metoprolol Tartrate) 25 Mg Tablet, 25 MG PO BID, TAB 06/30/25 Bumetanide (Bumetanide) 1 Mg Tablet, 1 MG PO DAILY, TAB 06/30/25 Nystatin (Nystatin) 100,000 Unit/Gram Cream.gm., 1 APPL TP TID for 5 Days, #15 GM 0 Refills apply to affected area(s) 06/30/25 Zinc Oxide (Desitin) 13 % Cream..g., 1 APPL TP QID for 5 Days, #57 GM 0 Refills 06/30/25 Apixaban (Eliquis) 2.5 Mg Tablet, 2.5 MG PO BID, TAB 11/17/21 Atorvastatin Calcium (LIPITOR) 40 Mg Tablet, 40 MG PO DAILY, TAB 10/03/21 Past Medical History Past Medical History: A-Fib, Anemia, Diabetes-Type II, High Cholesterol, Hy pertension, UTI, Other Additional Past Medical Hx: THROMBOCYTOPENIA, ESRD ON DIALYSIS Surgical History: Other Surgical History Other: PERMA CATH FOR DIALYSIS. Family History: CAD, DM, HTN Social History: Negative, Lives with family History: Not Applicable Review of System Dictation Constitutional: Negative for fever,chills, and weight loss Eyes: Negative for injury, pain,redness, and discharge ENT: Negative for injury,pain or swelling Cardiovascular: Negative for chest pain, palpitations, and edema Respiratory: Complaining of shortness a breath Abdomen/GI: Negative for abdominal pain, nausea, vomiting, diarrhea, and constipation Back: Negative for injury and pain : Negative for injury, bleeding and discharge MS/Extremity: Negative for injury and deformity Skin: Negative for rash, and discoloration Neuro: Negative for headache, weakness, numbness, tingling, and seizure Psych: Negative for suicide ideation, homicidal ideation, and hallucinations Review of Systems: was completed Initial Vital Sign VS Vital Signs Date Time Temp Pulse Resp B/P (MAP) Pulse Ox O2 Delivery O2 Flow Rate FiO2 07/17/25 10:33 98.1 84 18 130/80 95 Nasal Cannula 3.0 07/17/25 11:08 32 Physical Exam Dictation General: awake, alert, NAD Head/Face: Normocephalic, atraumatic Eyes: PERRL, EOMI, vision at baseline ENT: oral cavity clear, TMs clear, no signs of infection Neck: Trachea midline, supple, no nuchal rigidity Cardiovascular: Decreased lung sounds in the right Respiratory: CTAB, no respiratory distress, No rales or wheezes Abdomen: Soft, non-tender, non-distended, normal bowel sounds, no guarding or rebound. Skin: Warm, dry, normal turgor, no rash MS/Extremity: Pulses equal, no cyanosis, neurovascular intact, FROM Neuro: COAx4, GCS 15, strength 5/5, CN 2-12 intact, normal cerebellar exam, normal gait, Psych: Normal behavior, mood, and affect normal Results (Laboratory/Radiology) Laboratory/Radiology Laboratory Tests Test 9/3/25 10:50 07/17/25 12:10 White Blood Count 4.3 K/uL (4.8-10.8) L Red Blood Count 3.47 MIL/uL (4.00-5.50) L Hemoglobin 10.8 g/dL (12.0-16.0) L Hematocrit 36.7 % (36-48) Mean Corpuscular Volume 105.8 fL (79-99) H Mean Corpuscular Hemoglobin 31.1 pg (27.0-33.0) Mean Corpuscular Hemoglobin Concent 29.4 g/dL (32.0-36.0) L Red Cell Distribution Width 18.7 % (11.0-15.5) H Platelet Count 90 K/uL (130-400) L Mean Platelet Volume 9.4 fL (7.5-10.5) Immature Granulocyte % (Auto) 0.7 % (0-1) Neutrophils (%) (Auto) 66.6 % (40.0-77.0) Lymphocytes (%) (Auto) 14.8 % (21.0-51.0) L Monocytes (%) (Auto) 16.9 % (3.0-13.0) H Eosinophils (%) (Auto) 0.5 % (0.0-8.0) Basophils (%) (Auto) 0.5 % (0.0-5.0) Neutrophils # (Auto) 2.9 K/uL (1.8-7.7) Lymphocytes # (Auto) 0.6 K/uL (1.0-4.8) L Monocytes # (Auto) 0.7 K/uL (0.1-1.0) Eosinophils # (Auto) 0.02 K/uL (0.00-0.70) Basophils # (Auto) 0.02 K/uL (0.00-0.20) Absolute Immature Granulocyte (auto 0.03 K/uL (0-1) Nucleated Red Blood Cells 0.0 % (0.0-0.19) Prothrombin Time 12.1 SEC (9.6-11.6) H Prothromb Time International Ratio 1.16 (0.85-1.15) H Activated Partial Thromboplast Time 42.4 SEC (26.3-35.5) H D-Dimer Quantitative (PE/DVT) 3220 ng/mL (0-500) *H Sodium Level 134 mmol/L (136-145) L Potassium Level 3.9 mmol/L (3.5-5.1) Chloride Level 96 mmol/L (101-111) L Carbon Dioxide Level 34 mmol/L (21-32) H Blood Urea Nitrogen 23 mg/dL (7-18) H Creatinine 3.5 mg/dL (0.5-1.0) H Glomerular Filtration Rate Calc 12 mL/min (>90) Random Glucose 111 mg/dL (70-105) H Total Calcium 7.8 mg/dL (8.5-10.1) L Troponin I High Sensitivity 48 ng/L (4-50) Influenza Type A Antigen Negative For Type A Influenza Type B Antigen Negative For Type B Labs Reviewed?: Yes EKG Comment: EKGs done at 10:44 a.m.. Sinus rhythm, inferior infarct, old, nonspecific T abnormalities, lateral leads. No STEMI interpreted by ER MD ED Course ED Course Orders Procedure Category Date Status Time Cbc With Differential LAB 07/17/25 In Process 10:42 Basic Metabolic Panel LAB 07/17/25 Complete 10:42 Troponin I High LAB 07/17/25 Complete Sensitivity 10:42 Pt And Ptt LAB 07/17/25 Complete 10:42 Prothrombin Time With LAB 07/17/25 Complete INR 10:42 12 Lead Ekg Tracing- EKG 07/17/25 Complete Technical 10:42 Chest 1vw RAD 07/17/25 Taken 10:42 D-Dimer LAB 07/17/25 Complete 10:42 Covid Rna Naat LAB 07/17/25 In Process 10:42 Influenza Type A & B, LAB 07/17/25 In Process Rapid 10:42 Arterial Blood Gas RT 07/17/25 Transmitted 12:01 B-Type Natriuretic LAB 07/17/25 In Process Peptide 10:41 Nephrology Consult CONPHYSVC 07/17/25 Transmitted 12:38 Admit Orders ADM 07/17/25 Transmitted 12:38 Vital Signs Date Time Temp Pulse Resp B/P (MAP) Pulse Ox O2 Delivery O2 Flow Rate FiO2 07/17/25 11:08 98.1 85 17 116/61 92 Nasal Cannula* 3 32 07/17/25 10:33 98.1 84 18 130/80 95 Nasal Cannula 3.0 Medical Decision Making MDM MDM: 89-year-old female with a history of end-stage renal disease, cholesterol, sent from the [facility] for shortness a breath. Apparently patient was found without her nasal cannula and had O2 sat of 87. Patient at that time had WOB,, they reoriented the patient and put her on the nasal cannula and was sent here to rule out a pulmonary embolism. Patient at the time of my assessment is awake alert and oriented, mild respiratory distress, nasal cannula at 2 L, vital signs within normal range, satting 98%.CBC shows leukocytopenia, hemoglobin of 10 hematocrit of 36. Thrombocytopenia platelet count of 90. Elevated PT, INR coming in PTC. Patient is already taking Eliquis. D-dimer is 3220. At this time patient isn't a stapling of to have a CT scan dental lay flat to rule out a PE and is already taking Eliquis. This was discussed with the ER MD. we will try to get patient's dialyzed to help with her shortness a breath isn't in turn can have imaging done. Chemistry shows potassium of 3.9. Elevated BUN creatinine consistent with the patient's history of ESRD. Troponin is negative. EKGs shows no ST elevations or dysrhythmias. Chest x-ray shows worsening right-sided pleural effusion for previous visit in 07/02. Spoke to HEALTH AIDE for hospitalist. Okay to admit. Differential diagnosis: Fluid overload, electrolyte abnormality, pleural effusion, PE Rationale: Tests considered and ordered secondary to shared decision making include: labs, ECG and radiology Previous outside records reviewed: Old ER visits. Risk of complication and/or morbidity or mortality of patient management: None Medications-Per medication reconciliation Need for hospitalization: Patient does meet criteria for hospitalization. Need for emergency major/minor surgery: No There are no social concerns with this patient. Prescription drug management Prescriptions will include symptomatic care Patient's prior external medical records from other ER visits were reviewed by me as indicated. Prior testing and results from previous visits were reviewed. Prior tests were taken into account with medical decision making and resource utilization, independent historian/historians were used to obtain complete medical history. I independently interpreted the test that were performed, results were reviewed by me and considered findings on radiology if ordered. Medical management and examination interpretation discussions were had by me with other qualified healthcare professionals as indicated for the patient's care. DX & DISP Disposition: Inpatient Decision to Admit Date: Jul 17, 2025 Decision to Admit Time: 12:41 Departure Impression: Primary Impression: End-stage renal disease on hemodialysis Additional Impression: Pleural effusion Condition: Stable Referrals: INDIA SANTANA MD (PCP) I have reviewed the case, and I agree with, Diagnosis and Plan ARIANNE TROY NP Jul 17, 2025 12:26
[2025-07-17 12:40] LABS: INFLUENZA TYPE A Negative For Type A (NEGATIVE); INFLUENZA TYPE B Negative For Type B (NEGATIVE)
[2025-07-17 12:46] LABS: SARS-CoV-2, RNA, NAAT NEGATIVE SARS CoV-2 (NEGATIVE)
--- NOTE | 2025-07-17 12:47 | HMCIMG ---
EXAM: CR Chest, 1 View. CLINICAL HISTORY: sob COMPARISON: Radiograph dated July 02, 2025 Findings: AP view of the chest is submitted. Dual-lumen right IJ central venous catheter tips project over the distal SVC and proximal right atrium. Worsening diffuse interstitial airspace disease bilaterally, presumed reflect pulmonary edema. Moderate to large bilateral effusions. No pneumothorax. Stable cardiomegaly. Interval increased pulmonary vascular congestion. Left chest tube has been removed. Clips project over the left hemithorax. IMPRESSION: 1. Worsening diffuse bilateral pulmonary edema with moderate to large bilateral pleural effusions and increased pulmonary vascular congestion. 2. Dual-lumen right IJ central venous catheter with appropriate tip position. /[place]
--- NOTE | 2025-07-17 13:36 | NUR ---
NEPHRO CONSULT DR GALLOWAY MADE AWARE OF PT
--- NOTE | 2025-07-17 14:24 | CONS ---
NEPHROLOGY CONSULTATION NOTE Date/Time Patient Seen: Jul 17, 2025 1405 Reason for Consultation: Shortness of breath, ESRD, pleural effusion HISTORY OF PRESENT ILLNESS: This is an 89-year-old female with a past medical history of end-stage renal disease on hemodialysis Tuesday, hypertension, hyperlipidemia, breast cancer, atrial fibrillation on chronic anticoagulation. She presented to the emergency room from [facility] with complaints of shortness of breath. Chest x-ray showed worsening diffuse bilateral pulmonary edema with moderate to large bilateral pleural effusions and increased pulmonary vascular congestion showed need further evaluation management of pleural effusion. She has been compliant with hemodialysis, last session was done yesterday At the time of our visit, she denied any shortness of breath Electrolytes are stable Latest hemoglobin was 10.8 G/dL She was seen in the emergency room, in no acute distress Family at the bedside Prognosis remains guarded REVIEW OF SYSTEMS: GENERAL: Negative for any nausea, vomiting, fevers, chills, or weight loss. NEUROLOGIC: Negative for any blurry vision, blind spots, double vision, facial asymmetry, dysphagia, dysarthria, hemiparesis, hemisensory deficits, vertigo, ataxia. HEENT: Negative for any head trauma, neck trauma, neck stiffness, photophobia, phonophobia, sinusitis, rhinitis. CARDIAC: Negative for any chest pain, dyspnea on exertion, paroxysmal nocturnal dyspnea, peripheral edema. PULMONARY: Negative for any shortness of breath, wheezing, COPD, or TB exposure. GASTROINTESTINAL: Negative for any abdominal pain, nausea, vomiting, bright red blood per rectum, melena. GENITOURINARY: Negative for any dysuria, hematuria, incontinence. INTEGUMENTARY: Negative for any rashes, cuts, insect bites. RHEUMATOLOGIC: Negative for any joint pains, photosensitive rashes, history of vasculitis or kidney problems. HEMATOLOGIC: Negative for any abnormal bruising, frequent infections or bleeding. PAST MEDICAL HISTORY: end-stage renal disease on hemodialysis Tuesday, hypertension, hyperlipidemia, breast cancer, atrial fibrillation on chronic anticoagulation. PAST SURGICAL HISTORY: L mastectomy, L breast reconstruction , Ayan catheter PAST SOCIAL HISTORY: Currently resides at alf facility FAMILY HISTORY: Noncontributory PHYSICAL EXAM: GENERAL: Alert and oriented x 3. No acute distress. Well-nourished. EYES: EOMI. Anicteric. HENT: Moist mucous membranes. No scleral icterus. No cervical lymphadenopathy. LUNGS: Clear to auscultation bilaterally. No accessory muscle use. CARDIOVASCULAR: Regular rate and rhythm. No murmur. No JVD. ABDOMEN: Soft, non-tender and non-distended. No palpable masses. EXTREMITIES: No edema. Non-tender. SKIN: No rashes or lesions. Warm. NEUROLOGIC: No focal neurological deficits. CN II-XII grossly intact, but not individually tested. PSYCHIATRIC: Cooperative. Appropriate mood and affect. MEDICATIONS: [ ] Vital Signs (last 8hr) Date Time Temp Pulse Resp B/P (MAP) Pulse Ox O2 Delivery O2 Flow Rate FiO2 07/17/25 11:08 98.1 85 17 116/61 92 Nasal Cannula* 3 32 07/17/25 10:33 98.1 84 18 130/80 95 Nasal Cannula 3.0 DIAGNOSTICS / RADIOLOGY: [place] [id number] [address] IMAGING REPORT Signed PATIENT: VINAY BAEZA MR#: [id number] : 1935 SEX: F AGE: 89 LOCATION: [facility] ORDER 1043 STATUS: REG ER REPORT#: [id number] SERVICE 1042 REASON: sob ORDERING PHYSICIAN: ARIANNE TROY NP PROCEDURE: CXR1VW - CHEST 1VW EXAM: CR Chest, 1 View. CLINICAL HISTORY: sob COMPARISON: Radiograph dated July 02, 2025 Findings: AP view of the chest is submitted. Dual-lumen right IJ central venous catheter tips project over the distal SVC and proximal right atrium. Worsening diffuse interstitial airspace disease bilaterally, presumed reflect pulmonary edema. Moderate to large bilateral effusions. No pneumothorax. Stable cardiomegaly. Interval increased pulmonary vascular congestion. Left chest tube has been removed. Clips project over the left hemithorax. IMPRESSION: 1. Worsening diffuse bilateral pulmonary edema with moderate to large bilateral pleural effusions and increased pulmonary vascular congestion. 2. Dual-lumen right IJ central venous catheter with appropriate tip position. /[place] DICTATED BY: CONRAD REVELES Jr., MD DATE: 07/17/251345 ELECTRONICALLY SIGNED BY: CONRAD REVELES Jr., MD DATE: 07/17/251345 LABORATORY: [ ] Hematology Labs: Test 07/17/25 10:50 Range/Units White Blood Count 4.3 L 4.8-10.8 K/uL Red Blood Count 3.47 L 4.00-5.50 MIL/uL Hemoglobin 10.8 L 12.0-16.0 g/dL Hematocrit 36.7 36-48 % Mean Corpuscular Volume 105.8 H 79-99 fL Mean Corpuscular Hemoglobin 31.1 27.0-33.0 pg Mean Corpuscular Hemoglobin Concent 29.4 L 32.0-36.0 g/dL Red Cell Distribution Width 18.7 H 11.0-15.5 % Platelet Count 90 L 130-400 K/uL Mean Platelet Volume 9.4 7.5-10.5 fL Immature Granulocyte % (Auto) 0.7 0-1 % Neutrophils (%) (Auto) 66.6 40.0-77.0 % Lymphocytes (%) (Auto) 14.8 L 21.0-51.0 % Monocytes (%) (Auto) 16.9 H 3.0-13.0 % Eosinophils (%) (Auto) 0.5 0.0-8.0 % Basophils (%) (Auto) 0.5 0.0-5.0 % Neutrophils # (Auto) 2.9 1.8-7.7 K/uL Lymphocytes # (Auto) 0.6 L 1.0-4.8 K/uL Monocytes # (Auto) 0.7 0.1-1.0 K/uL Eosinophils # (Auto) 0.02 0.00-0.70 K/uL Basophils # (Auto) 0.02 0.00-0.20 K/uL Absolute Immature Granulocyte (auto 0.03 0-1 K/uL Nucleated Red Blood Cells 0.0 0.0-0.19 % White Cell Morphology Comment See comments Red Blood Cell Morphology See comments Chemistry Labs: Test 07/17/25 10:50 Range/Units Sodium Level 134 L 136-145 mmol/L Potassium Level 3.9 3.5-5.1 mmol/L Chloride Level 96 L 101-111 mmol/L Carbon Dioxide Level 34 H 21-32 mmol/L Blood Urea Nitrogen 23 H 7-18 mg/dL Creatinine 3.5 H 0.5-1.0 mg/dL Glomerular Filtration Rate Calc 12 >90 mL/min Random Glucose 111 H 70-105 mg/dL Total Calcium 7.8 L 8.5-10.1 mg/dL Troponin I High Sensitivity 48 4-50 ng/L B-Type Natriuretic Peptide 1230 H 0-100 pg/mL Coagulation Labs: Test 07/17/25 10:50 Range/Units Prothrombin Time 12.1 H 9.6-11.6 SEC Prothromb Time International Ratio 1.16 H 0.85-1.15 Activated Partial Thromboplast Time 42.4 H 26.3-35.5 SEC D-Dimer Quantitative (PE/DVT) 3220 *H 0-500 ng/mL ASSESSMENT: ESRD PATIENT HAS PLEURAL EFFUSION AND FLUID OVERLOAD PATIENT IS QUITE SHORT OF BREATH Anemia Shortness of breath Pleural effusion Hypertension Hyperlipidemia Atrial fibrillation PLAN: Labs and Diagnostics/ Radiology personally reviewed and interpreted by myself and supervising physician We have reviewed dialysis and external records in detail Continue dialysis schedule Tuesday PATIENT MAY NEED THORACENTESIS May give midodrine 10 mg p.o. right before dialysis, albumin as needed for hypotension during dialysis Please list current medications 1.5 L fluid restriction Continue to monitor H&H Epogen on dialysis days, as needed Continue with frequent monitoring of renal function, anemia, and electrolytes Order CBC, CMP, complete iron panel, ferritin and electrolytes in the morning May use Dilaudid 0.5 mg IV every 6 hours as needed for severe pain Monitor blood pressure adjust medication doses as needed Maintain normotensive state Strict intake, output, and daily weight should be monitored Please renally adjust medications. Avoid nephrotoxics and nonsteroidal drugs. We will continue to monitor the patient closely We have discussed with the other team physicians in detail about the care plan Thank you for allowing us to participate in the care of this patient ATTESTATION BY PHYSICIAN I have seen and examined the patient. I reviewed the documentation, medical deci abel making, and treatment plan as noted by the mid-level provider above. I agree with the findings and plan of care. LAY GALLOWAY MD, ELIZABETH FNP Jul 17, 2025 14:24 LAY GALLOWAY MD Jul 17, 2025 20:02
[2025-07-17] MEDS ORDERED: LACTULOSE 20 GM/30 ML UDCUP PO PRN (15:00)
[2025-07-17] MEDS ORDERED: NITROGLYCERIN 0.4 MG SL TAB SL PRN (15:00)
[2025-07-17] MEDS ORDERED: PoTASSium chl 10% ELIXIR 20MEQ 20 MEQ/15 ML UDCUP PO PRN (15:00)
[2025-07-17] MEDS ORDERED: DEXTROSE 50%-WATER 50 ML DISP.SYRIN IV PRN (15:00)
[2025-07-17] MEDS ORDERED: FAMOTIDINE 20MG VIAL IV PRN (15:00)
[2025-07-17] MEDS ORDERED: GLUCAGON 1MG KIT 1 MG ML IM PRN (15:00)
[2025-07-17] MEDS ORDERED: MAGNESIUM 2GM PREMIX 50ML 50 ML IV PRN (15:00)
[2025-07-17] MEDS ORDERED: guaiFENesin-DM 200/20MG 10ML PO PRN (15:00)
[2025-07-17] MEDS ORDERED: PoTASSium chloRIDE 20MEQ ER 20 MEQ ERTAB PO PRN (15:00)
[2025-07-17] MEDS ORDERED: MAG/ALUM/SIMETH 30 ML UDCUP PO PRN (15:00)
--- NOTE | 2025-07-17 15:09 | HP ---
[facility] Date of Service: Jul 17, 2025 Time of Service: 14:55 PCP:dr Thorpe Admitting: Dr Jaffe, Allergies: No Allergy Information Available, No Known Drug Allergies HISTORY OF PRESENT ILLNESS: [ Patient is 89 years old female with a past medical history of ESRD dialysis TTS, anemia, dysphagia, hyperlipidemia, MRSA of unknown source, thrombocytopenia , E coli in the urine, UTI, hypertension, muscle wasting and atrophy, uropathy, GERD, pancytopenia, pneumonia, AFib, malnutrition, who came to emergency department from [facility] after chest x-ray that showed pneumonia about two days ago. As per son who was at the bedside stated that apparently patient become very short of breaths today in the morning and she desatted to 87% and she was placed on a nasal cannula to help with the breathing. Patient was sent to [facility] for evaluation for possible pulmonary embolism. ] Most recent vital signs temperature 98.1 pulse 85 respirations 17 blood pressure 116/61 patient is on 4 L satting 94%. Influenza A negative influenza B negative COVID negative. Sodium 134 potassium 3.9 CO2 34 BUN 23 creatinine 3.5 GFR 12 glucose 111 calcium 7.8 troponin negative BNP 1230. WBC 4.3 hemoglobin 10.8 hematocrit 36.7 platelets 90. Chest x-ray showed bilateral pulmonary edema , moderate to large bilateral pleural effusions. Increased pulmonary vascular congestion. 2D echo pending. Patient will be admitted under hospitalist care for further evaluation/recommendation. Patient was already evaluated by the factory laborer regarding the ESRD dialysis and is pending possible dialysis. We will also consult plastic production machine setter to evaluate for the moderate to large bilateral pleural effusions and possible PE. CTA PE protocol was ordered. We will also consult ID for possible MRSA/ESRD and long-term antibiotics at the [facility]. REVIEW OF SYSTEMS CONSTITUTIONAL: Denies fevers, chills, or night sweats. No unintentional weight loss reported. NEUROLOGICAL: Denies headache, amaurosis fugax, motor weakness, sensory deficit, vertigo/spinning sensation, gait abnormalities, or tremors. ENT: No hearing loss, otalgia, otorrhea, rhinitis, rhinorrhea, hoarseness, or sore throat. CARDIOVASCULAR: Denies any exertional angina, dyspnea on exertion, orthopnea, paroxysmal nocturnal dyspnea, palpitations, life-threatening arrhythmias, claudication. PULMONARY: Denies any cough, phlegm/sputum, hemoptysis, pleuritic chest pain. Complains of shortness of breaths SLEEP: Denies morning headaches, daytime somnolence or napping. Denies difficulty falling asleep, staying asleep, waking from sleep. Denies knowledge of snoring. GASTROINTESTINAL: Denies any type of dysphagia to either liquids or solids. Denies nausea, vomiting, pyrosis, early satiety, abdominal pain, diarrhea, constipation, or changes in stool consistency or caliber. Denies coffee-ground emesis, hematemesis, hematochezia, or melanotic stools. GENITOURINARY: Denies frequency, urgency, nocturia, hematuria or incontinence (Storage/Irritative symptoms.) Low urinary stream, straining to void, urinary intermittency or hesitancy, splitting of the voiding stream, terminal dribbling. ENDOCRINOLOGIC: Denies polyuria, polydipsia, polyphagia or heat/cold intolerances. HEMATOLOGIC: Denies thrombophilia/previous clots, or coagulopathy/bleeding disorders. ONCOLOGIC: Denies personal history of malignancy. DERMATOLOGIC: Denies rashes or pruritus. PSYCHIATRIC: Denies any suicidal or homicidal ideation. Denies hallucinations. PAST MEDICAL HISTORY: [ ESRD dialysis TTS, pneumonia, anemia, dysphagia, MRSA, E coli, large pleural effusion right lung, sepsis, failure to thrive, hypertension muscle wasting, GERD, reflux, gastritis ] PAST SURGICAL HISTORY: [ ] PAST SOCIAL HISTORY: [ Patient denies smoking. Patient denies any drug illicit. Patient denies any alcohol consumption. ] FAMILY HISTORY: [ Patient came from [facility]] Coded Allergies: No Known Drug Allergies (Unverified Allergy, 07/23/13) PHYSICAL EXAM GENERAL APPEARANCE: The patient is awake, alert, and oriented, in no acute cardiopulmonary distress. NEUROLOGICAL: Cranial nerves II-XII grossly intact. Motor is 5/5 in bilateral upper and lower extremities proximal to distal. No sensory deficits. HEENT: Face is symmetric. Pupils are equal and reactive. Extraocular movements are intact. NECK: Supple. No JVD. No thyromegaly. No submental, submandibular, pre- /postauricular, occipital or supraclavicular lymphadenopathy. CHEST: Normal chest expansion. No Telemetry. LUNGS: Absence of any rales, rhonchi or any wheezing. CARDIOVASCULAR: Regular. S1 and S2 normal. No appreciable rubs, murmurs or gallops. ABDOMEN: Soft, nontender, and nondistended. There is no rebound, voluntary guarding, or rigidity. : Deferred. No Victor. EXTREMITIES: Non-edematous and not cyanotic. No clubbing. Good capillary refill. SKIN: No skin breakdown. Vital Sign (Last 24 Hours) 07/17/25 11:08 Temp 98.1 Pulse 85 Resp 17 B/P (MAP) 116/61 Pulse Ox 92 O2 Delivery Nasal Cannula* O2 Flow Rate 3 FiO2 32 LABS: Laboratory: Test 07/17/25 12:10 07/17/25 10:50 Range/Units Influenza Type A Antigen Negative For Type A NEGATIVE Influenza Type B Antigen Negative For Type B NEGATIVE SARS-CoV-2, RNA, NAAT NEGATIVE SARS CoV-2 NEGATIVE White Blood Count 4.3 L 4.8-10.8 K/uL Red Blood Count 3.47 L 4.00-5.50 MIL/uL Hemoglobin 10.8 L 12.0-16.0 g/dL Hematocrit 36.7 36-48 % Mean Corpuscular Volume 105.8 H 79-99 fL Mean Corpuscular Hemoglobin 31.1 27.0-33.0 pg Mean Corpuscular Hemoglobin Concent 29.4 L 32.0-36.0 g/dL Red Cell Distribution Width 18.7 H 11.0-15.5 % Platelet Count 90 L 130-400 K/uL Mean Platelet Volume 9.4 7.5-10.5 fL Immature Granulocyte % (Auto) 0.7 0-1 % Neutrophils (%) (Auto) 66.6 40.0-77.0 % Lymphocytes (%) (Auto) 14.8 L 21.0-51.0 % Monocytes (%) (Auto) 16.9 H 3.0-13.0 % Eosinophils (%) (Auto) 0.5 0.0-8.0 % Basophils (%) (Auto) 0.5 0.0-5.0 % Neutrophils # (Auto) 2.9 1.8-7.7 K/uL Lymphocytes # (Auto) 0.6 L 1.0-4.8 K/uL Monocytes # (Auto) 0.7 0.1-1.0 K/uL Eosinophils # (Auto) 0.02 0.00-0.70 K/uL Basophils # (Auto) 0.02 0.00-0.20 K/uL Absolute Immature Granulocyte (auto 0.03 0-1 K/uL Nucleated Red Blood Cells 0.0 0.0-0.19 % White Cell Morphology Comment See comments Red Blood Cell Morphology See comments Prothrombin Time 12.1 H 9.6-11.6 SEC Prothromb Time International Ratio 1.16 H 0.85-1.15 Activated Partial Thromboplast Time 42.4 H 26.3-35.5 SEC D-Dimer Quantitative (PE/DVT) 3220 *H 0-500 ng/mL Sodium Level 134 L 136-145 mmol/L Potassium Level 3.9 3.5-5.1 mmol/L Chloride Level 96 L 101-111 mmol/L Carbon Dioxide Level 34 H 21-32 mmol/L Blood Urea Nitrogen 23 H 7-18 mg/dL Creatinine 3.5 H 0.5-1.0 mg/dL Glomerular Filtration Rate Calc 12 >90 mL/min Random Glucose 111 H 70-105 mg/dL Total Calcium 7.8 L 8.5-10.1 mg/dL Troponin I High Sensitivity 48 4-50 ng/L B-Type Natriuretic Peptide 1230 H 0-100 pg/mL Current Medications Medications (Trade) Dose Ordered Sig/Karl Route PRN Reason Start Time Stop Time Status Last Admin Dose Admin Acetaminophen (TYLenol 325MG TAB) 650 mg Q4H PRN PO MILD PAIN (1-3) 07/17/25 15:00 08/16/25 14:59 UNV Acetaminophen (TYLenol 325MG TAB) 650 mg Q6H PRN PO MILD PAIN (1-3) 07/17/25 15:00 08/16/25 14:59 UNV Acetaminophen (TYLenol 325MG TAB) 650 mg Q6H PRN PO TEMPERATURE GREATER THAN 101.5 07/17/25 15:00 08/16/25 14:59 UNV Al Hydroxide/Mg Hydroxide (MAALox PLUS 30ML) 30 ml Q6H PRN PO INDIGESTION 07/17/25 15:00 08/16/25 14:59 UNV Albuterol Sulfate (Proventil 0.083% 2.5mg/3ml) 2.5 mg [id number] IH 07/17/25 18:00 08/16/25 17:59 UNV Dextrose (D50w) 50 ml AD PRN IV HYPOGLYCEMIA PROTOCOL 07/17/25 15:00 08/16/25 14:59 Diphenhydramine HCl (BENAdryl INJ) 25 mg Q6H PRN IV SEVERE ITCHING/RASH 07/17/25 15:00 08/16/25 14:59 UNV Famotidine (Pepcid 20mg Vial) 20 mg BID IV 07/17/25 21:00 08/16/25 20:59 UNV Famotidine (Pepcid 20mg Vial) 20 mg BID PRN IV NAUSEA/VOMITING 07/17/25 15:00 08/16/25 14:59 UNV Glucagon (Glucagon 1mg Kit) 1 mg AD PRN IM HYPOGLYCEMIA PROTOCOL 07/17/25 15:00 08/16/25 14:59 Guaifenesin/ Dextromethorphan (RobiTUSSin DM 200/20MG 10ML) 10 ml Q4H PRN PO COUGH 07/17/25 15:00 08/16/25 14:59 UNV Heparin Sodium (Porcine) (HEParin 5,000 UNIT VIAL) 5,000 unit BID SQ 07/17/25 21:00 08/16/25 20:59 UNV Hydralazine HCl (APRESOLine 20MG INJ) 10 mg Q6H PRN IV For:SBP above 160;DBP above 90 07/17/25 15:00 08/16/25 14:59 UNV Insulin Human Regular (humuLIN R 100 UNIT/ML 3ML) INSULIN SLIDING SCAL... ACHS SQ 07/17/25 16:30 08/16/25 16:29 Ipratropium [place] (AtrovENT UD) 0.5 mg [id number] IH 07/17/25 18:00 08/16/25 17:59 UNV Ketorolac Tromethamine (toRADol) 15 mg Q8H PRN IV MODERATE PAIN (4-6) 07/17/25 15:00 07/22/25 14:59 UNV Lactulose (Constulose 20gm/ 30ml Udcup) 20 gm BID PRN PO CONSTIPATION 07/17/25 15:00 08/16/25 14:59 UNV Magnesium Sulfate 50 ml @ 0 mls/hr PROTOCOL PRN IV other 07/17/25 15:00 08/16/25 14:59 UNV Methylprednisolone Sodium Succinate (Solu-medROL 125MG) 60 mg Q8H IV 07/17/25 15:00 08/16/25 14:59 UNV Morphine Sulfate (morPHINE 2MG SYG) 1 mg Q4H PRN IVP SEVERE PAIN (7-10) 07/17/25 15:00 07/24/25 14:59 UNV Nitroglycerin (Nitrostat) 0.4 mg PROTOCOL PRN SL CHEST PAIN 07/17/25 15:00 08/16/25 14:59 UNV Ondansetron HCl (zoFRAN 4MG INJ) 4 mg Q6H PRN IV NAUSEA/VOMITING 07/17/25 15:00 08/16/25 14:59 UNV Potassium Chloride 100 ml @ 100 mls/hr AD PRN IV POTASSIUM PROTOCOL 07/17/25 15:00 08/16/25 14:59 Potassium Chloride (K-Dur/Klor-Con 20meq) 10 meq AD PRN PO POTASSIUM PROTOCOL 07/17/25 15:00 08/16/25 14:59 Potassium Chloride (KCl 10% Elixir 20meq/15ml) 10 meq AD PRN PO POTASSIUM PROTOCOL 07/17/25 15:00 08/16/25 14:59 Vitamin B Complex/ Vit C/Folic Acid (Nephrovite Tablet) 1 cap DAILY PO 07/18/25 09:00 08/17/25 08:59 Zolpidem Tartrate (AmbIEN) 5 mg HS PRN PO INSOMNIA 07/17/25 15:00 08/16/25 14:59 UNV DIAGNOSTICS / RADIOLOGY: [ ] ASSESSMENT: [ Possible pulmonary embolism POA Acute hypoxic respiratory failure POA ESRD dialysis TTS POA Recent MRSA/ES BL/E coli on long-term antibiotics POA Moderate to large bilateral pleural effusion POA Increased pulmonary vascular congestion POA Bilateral pulmonary edema POA Uncontrolled diabetes mellitus type 2 with hypoglycemia POA Essential hypertension POA Multifactorial anemia POA Hyperlipidemia POA Atrial fibrillation, controlled POA Electrolyte imbalance hyponatremia 134 POA 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 labs Med rec to be reconciled once all the medication entered to the computer by RN Urine culture pending Blood culture pending 2D echo pending Chest x-ray showed bilateral pulmonary edema, large bilateral pleural effusion. Increased pulmonary vascular congestion CTA PE protocol pending Patient from [facility] PT consulted Case management consulted At this moment we will not place patient on any IV or p.o. antibiotics due to WBC at 4.3 and unknown origin of infection and previous IV antibiotic treatment. Dressing on the midline shown date of 06/20/2025 of last dressing change. We will wait for medications to be entered by RN from [facility]. At this moment continue to monitor patient ] ADVANCED CARE PLANNING 1. Which of the following were discussed? Hospice Care - Yes / No Therapeutic options - Yes / No Advance Directives - Yes / No Other discussions - 2. Discussed with who? Patient and family members/son at bedside 3. Voluntary nature of this service was explained to the patient? Yes / No 4. Amount of time spent - __ more than 35 minutes 5. Reviewed by Physician? (if this service was performed by NPP) Yes / No ATTESTATION BY PHYSICIAN I have seen and examined the patient. I reviewed the documentation, medical decision making, and treatment plan as noted by the mid-level provider above. I agree with the findings and plan of care. JLUIS JAFFE MD, KATARZYNA B APRN Jul 17, 2025 15:09
[2025-07-17 15:17] LABS: ABG BASE EXCESS -2.8 mmol/L (-2.0-3.0); ABG HCO3 25.6 mmol/L (21.0-28.0); ABG OXYGEN SATURATION 94.7 % (94.0-98.0); ABG PCO2 63 mmHg (32-45); ABG PH 7.231 (7.350-7.450); CARBON MONOXIDE 1.1 % (0.5-1.5); DEVICE COMMENT RR; PO2, ARTERIAL BG 81.6 mmHg (83.0-108.0); TEMPERATURE, CELSIUS BG 37.0 CELSIUS (35.5-37.0); VENT MODE, BG NC (ROOM AIR)
--- NOTE | 2025-07-17 15:45 | NUR ---
PT PLACED ON BI-PAP BY RT
--- NOTE | 2025-07-17 16:01 | NUR ---
DR MEYER MADE AWARE OF PT
--- NOTE | 2025-07-17 17:10 | NUR ---
RN WILL CALL WHEN PT READY FOR CTA, BIPAP
--- NOTE | 2025-07-17 18:43 | CONS ---
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 Physician: Dr Ruelas Outpatient Specialists: [ ] Inpatient Consults: [ ] PROBLEM LIST: Acute hypercapnic Respiratory Failure, POA Pleural Effusion, Bilateral,POA Possible hospital-acquired pneumonia ESRD on HD via right upper chest HD catheter, HD schedule TTS, got dialyzed yesterday, POA Chronic atrial fibrillation, on chronic anticoagulation Chronic anemia, POA Chronic thrombocytopenia, POA Hypertension, POA PLAN: Admit per primary Continue BiPAP Facilitate HD Facilitate ordered CT of the chest Keep head of bed above 30 Continue neb treatment Antibiotic management per ID Aspiration precautions Wean to nasal cannula as tolerated Pulmonary toilet HPI: 89 year old female with PMH of ESRD dialysis TTS, hyperlipidemia, hypertension, muscle wasting and atrophy, AFib, who presented to ED via EMS from a local correction here for worsening shortness of breaths. Per report her symptoms started earlier this morning, and was found to be hypoxic on room air at 87%. Her symptom was associated with productive cough, no reported fever or confusion. Initial evaluation in ED showed temperature of 98.1 pulse 85 respirations 17 blood pressure 116/61 patient is on 4 L satting 94%. Influenza A negative influenza B negative COVID negative. Sodium 134 potassium 3.9 CO2 34 BUN 23 creatinine 3.5 GFR 12 glucose 111 calcium 7.8 troponin negative BNP 1230. WBC 4.3 hemoglobin 10.8 hematocrit 36.7 platelets 90. Her initial chest x-ray Chest x-ray showed bilateral pulmonary edema , moderate to large bilateral pleural effusions with associated vascular congestion. Earlier this afternoon patient had an episode of worsening shortness of breath, even on O2 therapy. Stat ABG was ordered and showed pH of 7.2, and pCO2 of 62. Patient was then placed on BiPAP and consulted [facility] for further evaluation. Patient was seen and examined in ED with son present at bedside. Patient is currently on BiPAP, with O2 saturation of 98%, current setting of 10/5, rate of 20, and FiO2 of 40%. There is no sign of acute respiratory distress, most of the history was taken from his son. On evaluation there is diminished bilateral bases on auscultation without significant retraction, patient appears to be calm and comfortable. Apparently per son, patient had previously underwent thoracentesis on the left lung, was briefly placed on PleurX catheter but remove afterwards due to clogging. Son denies any history of heart failure, or O2 dependency. PAST MEDICAL HX: see above PAST SURGICAL HX: noncontributory SOCIAL HISTORY: No tobacco, ETOH, or illicit drug use Coded Allergies: No Known Drug Allergies (Unverified Allergy, 07/23/13) REVIEW OF SYSTEMS: 12 point ROS reviewed with patient. Pertinent positives mentioned above. Otherwise negative. PHYSICAL EXAM: GENERAL: alert, weak, awake oriented x 3 HEENT: EOMI, Sclera non icteric, moist mucosa NECK: Supple, no JVD, trachea midline LUNGS: On BiPAP, diminished bibasilar area on auscultation HEART: Regular rate and rhythm. Normal S1 and S2, without murmurs ABD: Abdomen soft, nontender. Bowel sounds present EXT: No clubbing cyanosis or edema NEURO: Alert and oriented to person, follows commands Vital Signs (last 8hr) Date Time Temp Pulse Resp B/P (MAP) Pulse Ox O2 Delivery O2 Flow Rate FiO2 07/17/25 15:35 71 27 45 07/17/25 15:00 79 22 N/Cannula Low lpm 4.0 36 07/17/25 11:08 98.1 85 17 116/61 92 Nasal Cannula* 3 32 LABS: Hematology Labs: Test 07/17/25 10:50 Range/Units White Blood Count 4.3 L 4.8-10.8 K/uL Red Blood Count 3.47 L 4.00-5.50 MIL/uL Hemoglobin 10.8 L 12.0-16.0 g/dL Hematocrit 36.7 36-48 % Mean Corpuscular Volume 105.8 H 79-99 fL Mean Corpuscular Hemoglobin 31.1 27.0-33.0 pg Mean Corpuscular Hemoglobin Concent 29.4 L 32.0-36.0 g/dL Red Cell Distribution Width 18.7 H 11.0-15.5 % Platelet Count 90 L 130-400 K/uL Mean Platelet Volume 9.4 7.5-10.5 fL Immature Granulocyte % (Auto) 0.7 0-1 % Neutrophils (%) (Auto) 66.6 40.0-77.0 % Lymphocytes (%) (Auto) 14.8 L 21.0-51.0 % Monocytes (%) (Auto) 16.9 H 3.0-13.0 % Eosinophils (%) (Auto) 0.5 0.0-8.0 % Basophils (%) (Auto) 0.5 0.0-5.0 % Neutrophils # (Auto) 2.9 1.8-7.7 K/uL Lymphocytes # (Auto) 0.6 L 1.0-4.8 K/uL Monocytes # (Auto) 0.7 0.1-1.0 K/uL Eosinophils # (Auto) 0.02 0.00-0.70 K/uL Basophils # (Auto) 0.02 0.00-0.20 K/uL Absolute Immature Granulocyte (auto 0.03 0-1 K/uL Nucleated Red Blood Cells 0.0 0.0-0.19 % White Cell Morphology Comment See comments Red Blood Cell Morphology See comments Chemistry Labs: Test 07/17/25 17:07 07/17/25 10:50 Range/Units Whole Blood Glucose 77 70-110 MG/DL Sodium Level 134 L 136-145 mmol/L Potassium Level 3.9 3.5-5.1 mmol/L Chloride Level 96 L 101-111 mmol/L Carbon Dioxide Level 34 H 21-32 mmol/L Blood Urea Nitrogen 23 H 7-18 mg/dL Creatinine 3.5 H 0.5-1.0 mg/dL Glomerular Filtration Rate Calc 12 >90 mL/min Random Glucose 111 H 70-105 mg/dL Total Calcium 7.8 L 8.5-10.1 mg/dL Troponin I High Sensitivity 48 4-50 ng/L B-Type Natriuretic Peptide 1230 H 0-100 pg/mL Coagulation Labs: Test 07/17/25 10:50 Range/Units Prothrombin Time 12.1 H 9.6-11.6 SEC Prothromb Time International Ratio 1.16 H 0.85-1.15 Activated Partial Thromboplast Time 42.4 H 26.3-35.5 SEC D-Dimer Quantitative (PE/DVT) 3220 *H 0-500 ng/mL DIAGNOSTICS / RADIOLOGY RESULTS: EXAM: CR Chest, 1 View. CLINICAL HISTORY: sob COMPARISON: Radiograph dated July 02, 2025 Findings: AP view of the chest is submitted. Dual-lumen right IJ central venous catheter tips project over the distal SVC and proximal right atrium. Worsening diffuse interstitial airspace disease bilaterally, presumed reflect pulmonary edema. Moderate to large bilateral effusions. No pneumothorax. Stable cardiomegaly. Interval increased pulmonary vascular congestion. Left chest tube has been removed. Clips project over the left hemithorax. IMPRESSION: 1. Worsening diffuse bilateral pulmonary edema with moderate to large bilateral pleural effusions and increased pulmonary vascular congestion. 2. Dual-lumen right IJ central venous catheter with appropriate tip position. PLAN NEURO: Minimize central acting medications as possible. Maintain fall precautions, adequate lighting during the day PULMONARY: Supplemental 02 as needed. Maintain aspiration precautions at all times CARDIOVASCULAR: Follow hemodynamics. Vital signs per facility protocol GI & NUTRITION: Continue with nutritional support. Continue stool softeners and laxatives as needed. KIDNEYS & ELECTROLYTES: Strict monitoring of intake, output and overall fluid balance. Avoid nephrotoxic medications to the extent possible. Medications to be dosed according to renal function. Monitor electrolytes and replace as needed ENDOCRINE: Maintain blood glucose between 100-180 at all times. Hypoglycemia protocol in place INFECTIOUS DISEASE: Trend temperature, WBC and procalcitonin level Follow cultures, deescalate antibiotics as soon as possible. Panculture if new onset fever ONCOLOGY/HEMATOLOGY/COAGULATION: Monitor for s/s of bleeding Monitor hemoglobin, coagulation studies as needed SKIN: Pressure ulcer prevention per facility protocol Specialty mattress ORTHO/REHAB: Continue PT/OT Prophylaxis: Continue GI and DVT prophylaxis Code Status: Full Resuscitation Disposition: TBD Other: Total patient care time exceeds 35 minutes excluding all procedures. Supervising Physician: ALLIE Duarte APRN Jul 17, 2025 18:43
--- NOTE | 2025-07-17 18:55 | NUR ---
BENCHMARK AT BEDSIDE
[2025-07-17] MEDS ORDERED: IOHEXOL-350 75 ML VIAL IV ONE (19:26)
[2025-07-17] MEDS: ALBUTEROL 0.083% 2.5 MG/3 ML INH IH SCH (19:44)
[2025-07-17 19:51] LABS: AMPHET/METH SCREEN,URINE NEGATIVE (NEGATIVE); BARBITURATE SCREEN, URINE NEGATIVE (NEGATIVE); CANNABINOID SCREEN,URINE NEGATIVE (NEGATIVE); COCAINE SCREEN,URINE NEGATIVE (NEGATIVE)
[2025-07-17 19:57] LABS: APPEARANCE,URINE TURBID (CLEAR); GLUCOSE, URINE (UA) NEGATIVE (NEGATIVE); LEUKOCYTE ESTERASE ,URINE 500 Leu/uL (NEGATIVE); NITRATE,URINE NEGATIVE (NEGATIVE); OCCULT BLOOD,URINE MODERATE (NEGATIVE); SQUAMOUS EPITHELIAL CELL,UR MANY /HPF (0-2); WBC CLUMP MANY /HPF (0-1)
--- NOTE | 2025-07-17 20:17 | NUR ---
I increased Inpiratory pressure to 14 on BIPAP pt was only doing volumes of 200s will continue ot monitor. Addendum: 07/17/25 at 2019 by PARRIS LANDRY RT Amended: Links added.
[2025-07-17] MEDS: FAMOTIDINE 20MG VIAL IV SCH (20:57)
--- NOTE | 2025-07-17 22:00 | HMCIMG ---
EXAM: CTA examination of the chest. CLINICAL HISTORY: Pulmonary embolism. TECHNIQUE: Thin collimated axial CTA images of the chest were obtained, with sagittal and coronal reformatted images also submitted. A CT scan is done according to ALARA (As Low as Reasonably Achievable). COMPARISON: Prior chest radiograph dated 17 July 2025. FINDINGS: The right transjugular dual-lumen catheter with tip in the cavoatrial junction. The right PICC line tip around the right axillary region. Moderate to large right-sided pleural effusion.Mild to moderate loculated left-sided pleural effusion with subtle wall thickening and small air locules within, probable empyema. No evidence of pneumothorax or mass lesion. No lung nodules. Mild cardiomegaly. No pericardial effusion. Diffuse atherosclerotic calcification of the coronary arteries. Atherosclerotic calcification of the aortic root, aortic arch, and descending thoracic aorta. No thoracic aortic aneurysm or dissection. No filling defect or pulmonary thromboembolism. Mildly dilated pulmonary trunk measuring 3.1 cm probable changes of pulmonary hypertension. A few enlarged pretracheal, precarinal subcarinal lymph nodes are identified, the largest measuring 2.2 cm in the precarinal region. No enlarged axillary or supraclavicular lymph nodes. No focal thyroid abnormality. Mild hiatus hernia. Mild heterogeneous coarse attenuation of the liver with widening of the interlobar fissures and caudate lobe hypertrophy, and probable changes of liver parenchymal disease. Mild splenomegaly. The gallbladder demonstrates hyperdense sludge or tiny calculi within. No obvious features of wall thickening. Moderate right-sided hydronephrosis. The remainder of the visualized upper abdomen is unremarkable. Moderate degenerative changes in the thoracic spine, acromioclavicular, and glenohumeral joints. Surgical along the left lateral and anterior chest wall. No acute or suspicious osseous abnormality. IMPRESSION: Normal contrast opacification of the pulmonary vasculature. No obvious evidence of pulmonary embolism. Mildly dilated pulmonary trunk measuring 3.1 cm, concerning mild pulmonary hypertension. Mild cardiomegaly. Diffuse coronary artery calcifications. Nonaneurysmal atherosclerotic vascular disease of the thoracic aorta. No evidence of dissection. Moderate to large right-sided pleural effusion. Mild to moderate loculated left-sided pleural effusion with subtle wall thickening and small air locules within, probable empyema. Chronic liver parenchymal disease. Mild splenomegaly. Subtle hyperdensity within the gallbladder lumen, probable sludge or calculi. Moderate right-sided hydronephrosis. Compared to the prior study, there is no significant interval change. /[place]
--- NOTE | 2025-07-17 22:36 | NUR ---
AWAITING RT TO ACCOMPANY ME FOR THE TRANSFER
[2025-07-18] VITALS (15 sets, daily range): BP systolic 116–145; BP diastolic 57–66; PULSE 70–81; RESP 18–27; TEMP 97.3–97.9; O2SAT 96–100
--- NOTE | 2025-07-18 02:39 | NUR ---
CALL PLACED TO [facility]. SPOKE WITH [employer]HAN HUMAN FACTORS ERGONOMIST ABOUT URINALYSIS RESULTED WITH POSITIVE LEUKOESTERAS AND WBC TOO MANY TO COUNT. PER REH[employer] HUM[employer] FACT[employer] ERGONOMIST: START ROCEPHIN 1 GM IV EVERY 24 HOURS. ORDERS NOTED AND CARRIED OUT.
[2025-07-18 04:37] LABS: IMMATURE GRANULOCYTE ABSOLUTE 0.02 K/uL (0-1); NUCLEATED RED BLOOD CELLS 0.0 % (0.0-0.19); PLATELET COUNT (AUTO) 73 K/uL (130-400); RED BLOOD CELL COUNT(AUTO) 3.51 MIL/uL (4.00-5.50); RED CELL DISTRIBUTION WIDTH 18.0 % (11.0-15.5); WHITE BLOOD COUNT (AUTO) 2.2 K/uL (4.8-10.8)
[2025-07-18 04:59] LABS: ASPARTATE AMINOTRANSFERASE 20.0 U/L (10-37); CREATININE 4.0 mg/dL (0.5-1.0); GLOMERULAR FILTR. RATE CALC 10.0 mL/min (>90); GLUCOSE,RANDOM 155.0 mg/dL (70-105); PHOSPHORUS 6.2 mg/dL (2.5-4.9); SODIUM SERUM 134.0 mmol/L (136-145); TOTAL PROTEIN, SERUM 6.2 g/dL (6.0-8.3); UREA NITROGEN, BLOOD 33.0 mg/dL (7-18)
[2025-07-18 05:09] LABS: CREATINE KINASE, TOTAL 34.0 U/L (21-232)
[2025-07-18 06:13] LABS: BAND NEUTROPHILS % (MANUAL) 21 % (0-2); LYMPHOCYTES % (MANUAL) 9 % (22-44); MAN.DIFF COMMENT-IMPRESSION MANUAL DIFFERENTIAL; MONOCYTES % (MANUAL) 1 % (2-9); REACTIVE LYMPHOCYTES 3 % (0-0); SEGMENTED NEUTROPHILS % 66 % (40-70); WBC MORPHOLOGY REACTIVE LYMPHS 1+
[2025-07-18] MEDS: Vitamin B Complex/Vit C/Folic Acid PO SCH (07:48)
[2025-07-18 10:26] LABS: ABG BASE EXCESS -4.5 mmol/L (-2.0-3.0); ABG HCO3 27.2 mmol/L (21.0-28.0); ABG OXYGEN SATURATION 96.8 % (94.0-98.0); ABG PCO2 85 mmHg (32-45); ABG PH 7.121 (7.350-7.450); DEVICE COMMENT LR; PO2, ARTERIAL BG 119.1 mmHg (83.0-108.0); TEMPERATURE, CELSIUS BG 37.0 CELSIUS (35.5-37.0); VENT MODE, BG BIPAP 14,5 (ROOM AIR)
--- NOTE | 2025-07-18 11:20 | NUR ---
DCP:[facility] SW met with son/ADORE Alegria [phone] who was at bedside. Prior to coming into the hospital pt was at [facility] for rehab. Pt was using a wheelchair and walker while at facility. Pt was also receiving assistance from the staff in order to complete ADLs. Pt does do dialysis at [facility]. PCP is Dr. Manan Garnett and uses [facility] for any RX needs. At DC pt will return to [facility], srinivasa signed consent and was placed in chart. Addendum: 07/18/25 at 1124 by CORNELIA CHRISTINA SS Amended: Links added.
--- NOTE | 2025-07-18 12:00 | NUR ---
RECEIVED HD ORDERS FROM MD GALLOWAY;HD CONSENT SIGNED AND IN CHART;HD NURSE IN PT'S ROOM;STRUCTURAL ANALYSIS ENGINEER AND PT'S SON CONVERSING; PT'S SON STATES THAT FAMILY DECIDED TO STOP DIALYSIS TREATMENTS AND PURSUE COMFORT MEASURES/HOSPICE AT THIS TIME;SPOKE WITH PRIMARY NURSE PORTER VALDOVINOS;MD GALLOWAY NOTIFIED, NO NEW ORDERS.
[2025-07-18] MEDS: 0.9%NACL 1000ML 1,000 ML IV SCH (12:19)
[2025-07-18] MEDS ORDERED: PHARMACY COMMUNICATION 1 EACH EACH MISC SCH (12:30)
--- NOTE | 2025-07-18 14:33 | PN ---
[facility] PROGRESS NOTE Date of Service: Jul 18, 2025 Time of Service: 14:23 SUBJECTIVE: 07/18 patient was seen and examined at bedside, patient chronically ill-appearing, on BiPAP, pressure 132/66, saturating 95%, hemoglobin 11.0, hematocrit 37.4. CMP with sodium 134, potassium 4.7, BUN creatinine 4.0. Repeat ABG showing a pH of 7.12, pCO2 of 85, PO2 119.1. At the time of my visit the patient , son and [id number] are present in the room, long discussion regarding current clinical condition, guarded and poor prognosis as well as goals of care. The patient has been made DNR/DNI, they have opted to consult hospice. Case management consulted, case discussed. REVIEW OF SYSTEMS CONSTITUTIONAL: Denies fevers, chills, or night sweats. No unintentional weight loss reported. NEUROLOGICAL: Denies headache, amaurosis fugax, motor weakness, sensory deficit, vertigo/spinning sensation, gait abnormalities, or tremors. ENT: No hearing loss, otalgia, otorrhea, rhinitis, rhinorrhea, hoarseness, or sore throat. CARDIOVASCULAR: Denies any exertional angina, dyspnea on exertion, orthopnea, paroxysmal nocturnal dyspnea, palpitations, life-threatening arrhythmias, claudication. PULMONARY: Denies any cough, phlegm/sputum, hemoptysis, pleuritic chest pain. Complains of shortness of breaths SLEEP: Denies morning headaches, daytime somnolence or napping. Denies difficulty falling asleep, staying asleep, waking from sleep. Denies knowledge of snoring. GASTROINTESTINAL: Denies any type of dysphagia to either liquids or solids. Denies nausea, vomiting, pyrosis, early satiety, abdominal pain, diarrhea, constipation, or changes in stool consistency or caliber. Denies coffee-ground emesis, hematemesis, hematochezia, or melanotic stools. GENITOURINARY: Denies frequency, urgency, nocturia, hematuria or incontinence (Storage/Irritative symptoms.) Low urinary stream, straining to void, urinary intermittency or hesitancy, splitting of the voiding stream, terminal dribbling. ENDOCRINOLOGIC: Denies polyuria, polydipsia, polyphagia or heat/cold intolerances. HEMATOLOGIC: Denies thrombophilia/previous clots, or coagulopathy/bleeding disorders. ONCOLOGIC: Denies personal history of malignancy. DERMATOLOGIC: Denies rashes or pruritus. PSYCHIATRIC: Denies any suicidal or homicidal ideation. Denies hallucinations. PHYSICAL EXAM GENERAL APPEARANCE: The patient is awake, alert, and oriented, in no acute cardiopulmonary distress. NEUROLOGICAL: Cranial nerves II-XII grossly intact. Motor is 5/5 in bilateral upper and lower extremities proximal to distal. No sensory deficits. HEENT: Face is symmetric. Pupils are equal and reactive. Extraocular movements are intact. NECK: Supple. No JVD. No thyromegaly. No submental, submandibular, pre- /postauricular, occipital or supraclavicular lymphadenopathy. CHEST: Normal chest expansion. No Telemetry. LUNGS: Absence of any rales, rhonchi or any wheezing. CARDIOVASCULAR: Regular. S1 and S2 normal. No appreciable rubs, murmurs or gallops. ABDOMEN: Soft, nontender, and nondistended. There is no rebound, voluntary guarding, or rigidity. : Deferred. No Victor. EXTREMITIES: Non-edematous and not cyanotic. No clubbing. Good capillary refill. SKIN: No skin breakdown. Vital Signs (last 8hr) Date Time Temp Pulse Resp B/P (MAP) Pulse Ox O2 Delivery O2 Flow Rate FiO2 07/18/25 13:50 79 22 N/Cannula Oximizer Hi LPM 10.0 60 07/18/25 12:00 97.5 75 18 132/66 95 BIPAP 07/18/25 10:34 75 20 07/18/25 10:34 78 25 40 07/18/25 08:00 97.3 74 18 137/64 98 BIPAP 07/18/25 06:38 78 20 07/18/25 06:33 78 27 40 LABS: Laboratory: Test 07/18/25 11:35 07/18/25 10:25 07/18/25 03:56 07/17/25 19:11 Range/Units Whole Blood Glucose 113 H 70-110 MG/DL Bedside Glucose Comment Notified Nurse Blood Gas Specimen Type Arterial Arterial Blood pH 7.121 *L 7.350-7.450 Arterial Blood Partial Pressure CO2 85 *H 32-45 mmHg Arterial Blood Partial Pressure O2 119.1 H 83.0-108.0 mmHg Arterial Blood HCO3 27.2 21.0-28.0 mmol/L Arterial Blood Oxygen Saturation 96.8 94.0-98.0 % Arterial Blood Base Excess -4.5 L -2.0-3.0 mmol/L Blood Gas Temperature 37.0 35.5-37.0 CELSIUS Blood Gas Respiration Rate 20.0 min. Blood Gas Vent Mode BIPAP 14,5 ROOM AIR FiO2 40.0 % Blood Gas Specimen Comment LR White Blood Count 2.2 #L 4.8-10.8 K/uL Red Blood Count 3.51 L 4.00-5.50 MIL/uL Hemoglobin 11.0 L 12.0-16.0 g/dL Hematocrit 37.4 36-48 % Mean Corpuscular Volume 106.6 H 79-99 fL Mean Corpuscular Hemoglobin 31.3 27.0-33.0 pg Mean Corpuscular Hemoglobin Concent 29.4 L 32.0-36.0 g/dL Red Cell Distribution Width 18.0 H 11.0-15.5 % Platelet Count 73 L 130-400 K/uL Mean Platelet Volume 9.7 7.5-10.5 fL Immature Granulocyte % (Auto) 0.9 0-1 % Neutrophils (%) (Auto) 89.4 H 40.0-77.0 % Lymphocytes (%) (Auto) 7.8 L 21.0-51.0 % Monocytes (%) (Auto) 1.4 L 3.0-13.0 % Eosinophils (%) (Auto) 0.0 0.0-8.0 % Basophils (%) (Auto) 0.5 0.0-5.0 % Neutrophils # (Auto) 2.0 1.8-7.7 K/uL Lymphocytes # (Auto) 0.2 L 1.0-4.8 K/uL Monocytes # (Auto) 0.0 L 0.1-1.0 K/uL Eosinophils # (Auto) 0.00 0.00-0.70 K/uL Basophils # (Auto) 0.01 0.00-0.20 K/uL Absolute Immature Granulocyte (auto 0.02 0-1 K/uL Segmented Neutrophils % 66 40-70 % Band Neutrophils % 21 H 0-2 % Lymphocytes % (Manual) 9 L 22-44 % Monocytes % (Manual) 1 L 2-9 % Nucleated Red Blood Cells 0.0 0.0-0.19 % Differential Comment MANUAL DIFFERENTIAL Reactive Lymphocytes 3 H 0-0 % White Cell Morphology Comment REACTIVE LYMPHS 1+ Platelet Morphology Comment See comments Red Blood Cell Morphology See comments Sodium Level 134 L 136-145 mmol/L Potassium Level 4.7 3.5-5.1 mmol/L Chloride Level 95 L 101-111 mmol/L Carbon Dioxide Level 31 21-32 mmol/L Blood Urea Nitrogen 33 H 7-18 mg/dL Creatinine 4.0 H 0.5-1.0 mg/dL Glomerular Filtration Rate Calc 10 >90 mL/min Random Glucose 155 H 70-105 mg/dL Lactic Acid Level 1.6 0.8-2.5 mmol/L Total Calcium 8.1 L 8.5-10.1 mg/dL Phosphorus Level 6.2 H 2.5-4.9 mg/dL Magnesium Level 1.90 1.80-2.40 mg/dL Total Bilirubin 0.3 0.2-1.0 mg/dL Direct Bilirubin 0.1 0.0-0.3 mg/dL Aspartate Amino Transf (AST/SGOT) 20 10-37 U/L Alanine Aminotransferase (ALT/SGPT) 12 12-78 U/L Alkaline Phosphatase 97 50-136 U/L Ammonia 11 11-32 umol/L Total Creatine Kinase 34 21-232 U/L B-Type Natriuretic Peptide 1130 H 0-100 pg/mL Total Protein 6.2 6.0-8.3 g/dL Albumin 2.1 L 3.5-5.0 g/dL Amylase Level 43 25-115 U/L Lipase 20 16-77 U/L Procalcitonin 0.72 H 0.05-0.5 ng/mL Urine Color DARK-ORANGE YELLOW Urine Appearance TURBID CLEAR Urine pH 6.0 5.0-8.0 Urine Specific [place] 1.014 1.001-1.031 Urine Protein 200 H NEGATIVE mg/dL Urine Glucose (UA) NEGATIVE NEGATIVE mg/dL Urine Ketones NEGATIVE NEGATIVE mg/dL Urine Occult Blood MODERATE H NEGATIVE Urine Nitrate NEGATIVE NEGATIVE Urine Bilirubin NEGATIVE NEGATIVE mg/dL Urine Urobilinogen 0.2 0.2-1.0 mg/dL Urine Leukocyte Esterase 500 H NEGATIVE Marcus/uL Urine RBC 51-100 H 0-1 /HPF Urine WBC TNTC H 0-1 /HPF Urine WBC Clumps (Auto) MANY 0-1 /HPF Urine Squamous Epithelial Cells MANY 0-2 /HPF Urine Bacteria MOD None Seen /HPF Urine Opiates Screen NEGATIVE NEGATIVE Urine Barbiturates Screen NEGATIVE NEGATIVE Urine Phencyclidine Screen NEGATIVE NEGATIVE Urine Amphetamines Screen NEGATIVE NEGATIVE Urine Benzodiazepines Screen NEGATIVE NEGATIVE Urine Cocaine Screen NEGATIVE NEGATIVE Urine Marijuana (THC) Screen NEGATIVE NEGATIVE Test 07/17/25 15:15 07/17/25 12:10 07/17/25 10:50 Range/Units Hemoglobin (Blood Gas) 12.0 12.0-16.0 g/dL Sodium (Blood Gas) 133 L 136-145 MMOL/L Bedside Potassium (Blood Gas) 4.1 3.4-4.5 MMOL/L Bedside Chloride (Blood Gas) 96 L 98-107 MMOL/L Bedside Glucose (Blood Gas) 93 65-95 MG/DL Bedside Ionized Calcium (Blood Gas) 1.16 1.15-1.33 MMOL/L Bedside Lactic Acid (Blood Gas) 1.35 H 0.36-0.75 MMOL/L Blood Gas Flow-by 4.00 0.00-15.00 L/min Influenza Type A Antigen Negative For Type A NEGATIVE Influenza Type B Antigen Negative For Type B NEGATIVE SARS-CoV-2, RNA, NAAT NEGATIVE SARS CoV-2 NEGATIVE Prothrombin Time 12.1 H 9.6-11.6 SEC Prothromb Time International Ratio 1.16 H 0.85-1.15 Activated Partial Thromboplast Time 42.4 H 26.3-35.5 SEC D-Dimer Quantitative (PE/DVT) 3220 *H 0-500 ng/mL Hemoglobin A1c 4.5 4.0-6.0 % Estimated Average Glucose (eAG) 82 70-126 mg/dL Troponin I High Sensitivity 48 4-50 ng/L Current Medications Medications (Trade) Dose Ordered Sig/Karl Route PRN Reason Start Time Stop Time Status Last Admin Dose Admin Acetaminophen (TYLenol 325MG TAB) 650 mg Q4H PRN PO MILD PAIN (1-3) 07/17/25 15:00 08/16/25 14:59 Acetaminophen (TYLenol 325MG TAB) 650 mg Q6H PRN PO MILD PAIN (1-3) 07/17/25 15:00 07/17/25 15:00 DC Acetaminophen (TYLenol 325MG TAB) 650 mg Q6H PRN PO TEMPERATURE GREATER THAN 101.5 07/17/25 15:00 08/16/25 14:59 Al Hydroxide/Mg Hydroxide (MAALox PLUS 30ML) 30 ml Q6H PRN PO INDIGESTION 07/17/25 15:00 08/16/25 14:59 Albuterol Sulfate (Proventil 0.083% 2.5mg/3ml) 2.5 mg [id number] IH 07/17/25 18:00 08/16/25 17:59 07/18/25 10:16 2.5 MG Ceftriaxone Sodium (ROCEphine 1G INJ) 1 gm Q24H IVPB 07/18/25 03:00 07/18/25 12:43 DC 07/18/25 02:46 1 GM Dextrose (D50w) 50 ml AD PRN IV HYPOGLYCEMIA PROTOCOL 07/17/25 15:00 08/16/25 14:59 Diphenhydramine HCl (BENAdryl INJ) 25 mg Q6H PRN IV SEVERE ITCHING/RASH 07/17/25 15:00 08/16/25 14:59 Famotidine (Pepcid 20mg Vial) 20 mg BID PRN IV NAUSEA/VOMITING 07/17/25 15:00 07/17/25 15:04 DC Famotidine (Pepcid 20mg Vial) 20 mg Q48H IV 07/17/25 21:00 08/16/25 20:59 07/17/25 20:57 20 MG Glucagon (Glucagon 1mg Kit) 1 mg AD PRN IM HYPOGLYCEMIA PROTOCOL 07/17/25 15:00 08/16/25 14:59 Guaifenesin/ Dextromethorphan (RobiTUSSin DM 200/20MG 10ML) 10 ml Q4H PRN PO COUGH 07/17/25 15:00 08/16/25 14:59 Heparin Sodium (Porcine) (HEParin 5,000 UNIT VIAL) 5,000 unit BID SQ 07/17/25 21:00 07/17/25 16:26 DC Hydralazine HCl (APRESOLine 20MG INJ) 5 mg Q6H PRN IV For:SBP above 160;DBP above 90 07/18/25 15:00 08/17/25 14:59 Hydralazine HCl (APRESOLine 20MG INJ) 10 mg Q6H PRN IV For:SBP above 160;DBP above 90 07/17/25 15:00 07/18/25 10:10 DC Insulin Human Regular (humuLIN R 100 UNIT/ML 3ML) INSULIN SLIDING SCAL... ACHS SQ 07/17/25 16:30 08/16/25 16:29 Ipratropium Calvin (AtrovENT UD) 0.5 mg [id number] IH 07/17/25 18:00 08/16/25 17:59 07/18/25 10:16 0.5 MG Ketorolac Tromethamine (toRADol) 15 mg Q8H PRN IV MODERATE PAIN (4-6) 07/17/25 15:00 07/17/25 14:59 DC Lactulose (Constulose 20gm/ 30ml Udcup) 20 gm BID PRN PO CONSTIPATION 07/17/25 15:00 08/16/25 14:59 Magnesium Sulfate 50 ml @ 0 mls/hr PROTOCOL PRN IV other 07/17/25 15:00 08/16/25 14:59 Methylprednisolone Sodium Succinate (Solu-medROL 125MG) 60 mg Q8H IV 07/17/25 15:00 08/16/25 14:59 07/18/25 08:32 60 MG Morphine Sulfate (morPHINE 2MG SYG) 1 mg Q4H PRN IVP SEVERE PAIN (7-10) 07/17/25 15:00 07/24/25 14:59 Nitroglycerin (Nitrostat) 0.4 mg PROTOCOL PRN SL CHEST PAIN 07/17/25 15:00 08/16/25 14:59 Ondansetron HCl (zoFRAN 4MG INJ) 4 mg Q6H PRN IV NAUSEA/VOMITING 07/17/25 15:00 08/16/25 14:59 Pharmacy Profile Note (Lace Assessment) 1 each AD MISC 07/18/25 12:30 07/18/25 12:08 DC Potassium Chloride 100 ml @ 100 mls/hr AD PRN IV POTASSIUM PROTOCOL 07/17/25 15:00 08/16/25 14:59 Potassium Chloride (K-Dur/Klor-Con 20meq) 10 meq AD PRN PO POTASSIUM PROTOCOL 07/17/25 15:00 08/16/25 14:59 Potassium Chloride (KCl 10% Elixir 20meq/15ml) 10 meq AD PRN PO POTASSIUM PROTOCOL 07/17/25 15:00 08/16/25 14:59 Sodium Chloride 1,000 ml @ 0 mls/hr ONCE IV 07/18/25 09:30 08/17/25 09:29 Vitamin B Complex/ Vit C/Folic Acid (Nephrovite Tablet) 1 cap DAILY PO 07/18/25 09:00 08/17/25 08:59 Zolpidem Tartrate (AmbIEN) 5 mg HS PRN PO INSOMNIA 07/17/25 15:00 08/16/25 14:59 DIAGNOSTICS / RADIOLOGY: [ ] ASSESSMENT: [ Possible pulmonary embolism POA Acute hypoxic respiratory failure POA ESRD dialysis TTS POA Recent MRSA/ES BL/E coli on long-term antibiotics POA Moderate to large bilateral pleural effusion POA Increased pulmonary vascular congestion POA Bilateral pulmonary edema POA Uncontrolled diabetes mellitus type 2 with hypoglycemia POA Essential hypertension POA Multifactorial anemia POA Hyperlipidemia POA Atrial fibrillation, controlled POA Electrolyte imbalance hyponatremia 134 POA 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 NEURO: Minimize central acting medications as possible. Fall Precautions. Well lighted room through the day and minimize interruptions through the night to prevent acute delirium. PULMONARY: Supplemental 02 as needed BiPAP as necessary, for respiratory distress Titrate Fio2 to keep Spo2 > or = 90% DuoNebs and CPT as needed IS hourly while awake for pulmonary hygiene prn Out of bed to chair as tolerated Maintain aspiration precautions at all times CARDIOVASCULAR: Follow hemodynamics. Vital signs per facility protocol GI & NUTRITION: Continue nutritional support Aspirations precautions Prokinetic agents and laxatives as needed KIDNEYS & ELECTROLYTES: Strict monitoring of intake and output Daily weights Avoid nephrotoxic agents Monitor electrolytes and replace as needed Goal urine output of 30mL/hr or 0.5mL/kg/hr Medications to be dosed according to renal function. Avoid contrast if possible ENDOCRINE: Maintain blood glucose between 100-180 at all times. Insulin sliding scale for blood glucose management Hypoglycemia and hyperglycemia protocol in place INFECTIOUS DISEASE: Trend temperature, WBC and procalcitonin level Follow cultures, deescalate antibiotics as soon as possible. Panculture if new onset fever HEMATOLOGY & COAGULATION: Monitor H&H. Keep Hgb > 7 Transfuse 1 unit of PRBC for Hgb < 7 Transfuse 1 pack of platelets of platelets < 20, 000 Watch for any signs and symptoms of bleeding SKIN: Pressure ulcer prevention per facility protocol Specialty mattress as needed ORTHO/REHAB Continue PT/OT PRN: MEDICATIONS Tylenol 650 mg po every 4 hrs for fever zofran 4 mg IV every 6 hrs for n/v Hydralazine 5 mg IV every 4 hrs systolic pressure > 160 bowel regiment: lactulose 20 gm PO BID PRN constipation Supportive measures: Continue GI and DVT prophylaxis Disposition: conference services manager consulted for hospice. All questions answered time spent: > 35 min JLUIS JAFFE MD Jul 18, 2025 14:33
--- NOTE | 2025-07-18 14:44 | PN ---
[facility] PROGRESS NOTE Date Patient Seen: Jul 18, 2025 Time of Visit: 14:42 Supervising Physician: Dr. La Consulting Physician: Dr Ruelas Outpatient Specialists: [ ] Inpatient Consults: [ ] PROBLEM LIST: Acute hypercapnic Respiratory Failure, POA Pleural Effusion, Bilateral,POA Possible hospital-acquired pneumonia ESRD on HD via right upper chest HD catheter, HD schedule TTS, got dialyzed yesterday, POA Chronic atrial fibrillation, on chronic anticoagulation Chronic anemia, POA Chronic thrombocytopenia, POA Hypertension, POA PLAN: Continue with BiPAP Continue with dialysis Family currently seeking hospice INTERVAL HISTORY: Patient was evaluated at bedside with son present, she is currently on BiPAP at 14/5 for CO2 level of 63 on the latest ABG. White count today is 2.2 with a hemoglobin of . Patient continues on Rocephin at this time. Scheduled for dialysis today however patient's family stated that they are moving forward with hospice decisions. Advised family that we will continue to follow the patient while she remain on the floor however at the time that hospice took over we will likely stat bag is hospice we will take charge with the patient's care. Patient family updated at bedside. REVIEW OF SYSTEMS: 12 point ROS reviewed with patient. Pertinent positives mentioned above. Otherwise negative. PHYSICAL EXAM: GENERAL: alert, weak, awake oriented x 3 HEENT: EOMI, Sclera non icteric, moist mucosa NECK: Supple, no JVD, trachea midline LUNGS: On BiPAP, diminished bibasilar area on auscultation HEART: Regular rate and rhythm. Normal S1 and S2, without murmurs ABD: Abdomen soft, nontender. Bowel sounds present EXT: No clubbing cyanosis or edema NEURO: Alert and oriented to person, follows commands Vital Signs (last 8hr) Date Time Temp Pulse Resp B/P (MAP) Pulse Ox O2 Delivery O2 Flow Rate FiO2 07/18/25 13:50 79 22 N/Cannula Oximizer Hi LPM 10.0 60 07/18/25 12:00 97.5 75 18 132/66 95 BIPAP 07/18/25 10:34 75 20 07/18/25 10:34 78 25 40 07/18/25 08:00 97.3 74 18 137/64 98 BIPAP LABS: Hematology Labs: Test 07/18/25 03:56 Range/Units White Blood Count 2.2 #L 4.8-10.8 K/uL Red Blood Count 3.51 L 4.00-5.50 MIL/uL Hemoglobin 11.0 L 12.0-16.0 g/dL Hematocrit 37.4 36-48 % Mean Corpuscular Volume 106.6 H 79-99 fL Mean Corpuscular Hemoglobin 31.3 27.0-33.0 pg Mean Corpuscular Hemoglobin Concent 29.4 L 32.0-36.0 g/dL Red Cell Distribution Width 18.0 H 11.0-15.5 % Platelet Count 73 L 130-400 K/uL Mean Platelet Volume 9.7 7.5-10.5 fL Immature Granulocyte % (Auto) 0.9 0-1 % Neutrophils (%) (Auto) 89.4 H 40.0-77.0 % Lymphocytes (%) (Auto) 7.8 L 21.0-51.0 % Monocytes (%) (Auto) 1.4 L 3.0-13.0 % Eosinophils (%) (Auto) 0.0 0.0-8.0 % Basophils (%) (Auto) 0.5 0.0-5.0 % Neutrophils # (Auto) 2.0 1.8-7.7 K/uL Lymphocytes # (Auto) 0.2 L 1.0-4.8 K/uL Monocytes # (Auto) 0.0 L 0.1-1.0 K/uL Eosinophils # (Auto) 0.00 0.00-0.70 K/uL Basophils # (Auto) 0.01 0.00-0.20 K/uL Absolute Immature Granulocyte (auto 0.02 0-1 K/uL Segmented Neutrophils % 66 40-70 % Band Neutrophils % 21 H 0-2 % Lymphocytes % (Manual) 9 L 22-44 % Monocytes % (Manual) 1 L 2-9 % Nucleated Red Blood Cells 0.0 0.0-0.19 % Differential Comment MANUAL DIFFERENTIAL Reactive Lymphocytes 3 H 0-0 % White Cell Morphology Comment REACTIVE LYMPHS 1+ Platelet Morphology Comment See comments Red Blood Cell Morphology See comments Chemistry Labs: Test 07/18/25 11:35 07/18/25 03:56 07/17/25 10:50 Range/Units Whole Blood Glucose 113 H 70-110 MG/DL Bedside Glucose Comment Notified Nurse Sodium Level 134 L 136-145 mmol/L Potassium Level 4.7 3.5-5.1 mmol/L Chloride Level 95 L 101-111 mmol/L Carbon Dioxide Level 31 21-32 mmol/L Blood Urea Nitrogen 33 H 7-18 mg/dL Creatinine 4.0 H 0.5-1.0 mg/dL Glomerular Filtration Rate Calc 10 >90 mL/min Random Glucose 155 H 70-105 mg/dL Lactic Acid Level 1.6 0.8-2.5 mmol/L Total Calcium 8.1 L 8.5-10.1 mg/dL Phosphorus Level 6.2 H 2.5-4.9 mg/dL Magnesium Level 1.90 1.80-2.40 mg/dL Total Bilirubin 0.3 0.2-1.0 mg/dL Direct Bilirubin 0.1 0.0-0.3 mg/dL Aspartate Amino Transf (AST/SGOT) 20 10-37 U/L Alanine Aminotransferase (ALT/SGPT) 12 12-78 U/L Alkaline Phosphatase 97 50-136 U/L Ammonia 11 11-32 umol/L Total Creatine Kinase 34 21-232 U/L B-Type Natriuretic Peptide 1130 H 0-100 pg/mL Total Protein 6.2 6.0-8.3 g/dL Albumin 2.1 L 3.5-5.0 g/dL Amylase Level 43 25-115 U/L Lipase 20 16-77 U/L Procalcitonin 0.72 H 0.05-0.5 ng/mL Hemoglobin A1c 4.5 4.0-6.0 % Estimated Average Glucose (eAG) 82 70-126 mg/dL Troponin I High Sensitivity 48 4-50 ng/L Coagulation Labs: Test 07/17/25 10:50 Range/Units Prothrombin Time 12.1 H 9.6-11.6 SEC Prothromb Time International Ratio 1.16 H 0.85-1.15 Activated Partial Thromboplast Time 42.4 H 26.3-35.5 SEC D-Dimer Quantitative (PE/DVT) 3220 *H 0-500 ng/mL DIAGNOSTICS / RADIOLOGY RESULTS: [ ] PLAN NEURO: Minimize central acting medications as possible. Maintain fall precautions, adequate lighting during the day PULMONARY: Supplemental 02 as needed. Maintain aspiration precautions at all times CARDIOVASCULAR: Follow hemodynamics. Vital signs per facility protocol GI & NUTRITION: Continue with nutritional support. Continue stool softeners and laxatives as needed. KIDNEYS & ELECTROLYTES: Strict monitoring of intake, output and overall fluid balance. Avoid nephrotoxic medications to the extent possible. Medications to be dosed according to renal function. Monitor electrolytes and replace as needed ENDOCRINE: Maintain blood glucose between 100-180 at all times. Hypoglycemia protocol in place INFECTIOUS DISEASE: Trend temperature, WBC and procalcitonin level Follow cultures, deescalate antibiotics as soon as possible. Panculture if new onset fever ONCOLOGY/HEMATOLOGY/COAGULATION: Monitor for s/s of bleeding Monitor hemoglobin, coagulation studies as needed SKIN: Pressure ulcer prevention per facility protocol Specialty mattress ORTHO/REHAB: Continue PT/OT Prophylaxis: Continue GI and DVT prophylaxis Code Status: Full Resuscitation Disposition: TBD Other: Total patient care time exceeds 35 minutes excluding all procedures. SELENE GERARDO Jul 18, 2025 14:44
--- NOTE | 2025-07-18 15:14 | PN ---
NEPHROLOGY PROGRESS NOTE Date/Time Patient Seen: Jul 18, 2025 SUBJECTIVE: This is an 89-year-old female with a past medical history of end-stage renal disease on hemodialysis Tuesday, hypertension, hyperlipidemia, breast cancer, atrial fibrillation on chronic anticoagulation. She presented to the emergency room from [facility] with complaints of shortness of breath. Chest x-ray showed worsening diffuse bilateral pulmonary edema with moderate to large bilateral pleural effusions and increased pulmonary vascular congestion showed need further evaluation management of pleural effusion. She has been compliant with hemodialysis, The patient and family have elected to proceed with comfort measures. She was seen in the medical floor, in no acute distress Family at the bedside Prognosis remains guarded REVIEW OF SYSTEMS: GENERAL: Negative for any nausea, vomiting, fevers, chills, or weight loss. NEUROLOGIC: Negative for any blurry vision, blind spots, double vision, facial asymmetry, dysphagia, dysarthria, hemiparesis, hemisensory deficits, vertigo, ataxia. HEENT: Negative for any head trauma, neck trauma, neck stiffness, photophobia, phonophobia, sinusitis, rhinitis. CARDIAC: Negative for any chest pain, dyspnea on exertion, paroxysmal nocturnal dyspnea, peripheral edema. PULMONARY: Negative for any shortness of breath, wheezing, COPD, or TB exposure. GASTROINTESTINAL: Negative for any abdominal pain, nausea, vomiting, bright red blood per rectum, melena. GENITOURINARY: Negative for any dysuria, hematuria, incontinence. INTEGUMENTARY: Negative for any rashes, cuts, insect bites. RHEUMATOLOGIC: Negative for any joint pains, photosensitive rashes, history of vasculitis or kidney problems. HEMATOLOGIC: Negative for any abnormal bruising, frequent infections or bleeding. PHYSICAL EXAM: GENERAL: Alert and oriented x 3. No acute distress. Well-nourished. EYES: EOMI. Anicteric. HENT: Moist mucous membranes. No scleral icterus. No cervical lymphadenopathy. LUNGS: Clear to auscultation bilaterally. No accessory muscle use. CARDIOVASCULAR: Regular rate and rhythm. No murmur. No JVD. ABDOMEN: Soft, non-tender and non-distended. No palpable masses. EXTREMITIES: No edema. Non-tender. SKIN: No rashes or lesions. Warm. NEUROLOGIC: No focal neurological deficits. CN II-XII grossly intact, but not individually tested. PSYCHIATRIC: Cooperative. Appropriate mood and affect. LABORATORY: [ ] Hematology Labs: Test 07/18/25 03:56 Range/Units White Blood Count 2.2 #L 4.8-10.8 K/uL Red Blood Count 3.51 L 4.00-5.50 MIL/uL Hemoglobin 11.0 L 12.0-16.0 g/dL Hematocrit 37.4 36-48 % Mean Corpuscular Volume 106.6 H 79-99 fL Mean Corpuscular Hemoglobin 31.3 27.0-33.0 pg Mean Corpuscular Hemoglobin Concent 29.4 L 32.0-36.0 g/dL Red Cell Distribution Width 18.0 H 11.0-15.5 % Platelet Count 73 L 130-400 K/uL Mean Platelet Volume 9.7 7.5-10.5 fL Immature Granulocyte % (Auto) 0.9 0-1 % Neutrophils (%) (Auto) 89.4 H 40.0-77.0 % Lymphocytes (%) (Auto) 7.8 L 21.0-51.0 % Monocytes (%) (Auto) 1.4 L 3.0-13.0 % Eosinophils (%) (Auto) 0.0 0.0-8.0 % Basophils (%) (Auto) 0.5 0.0-5.0 % Neutrophils # (Auto) 2.0 1.8-7.7 K/uL Lymphocytes # (Auto) 0.2 L 1.0-4.8 K/uL Monocytes # (Auto) 0.0 L 0.1-1.0 K/uL Eosinophils # (Auto) 0.00 0.00-0.70 K/uL Basophils # (Auto) 0.01 0.00-0.20 K/uL Absolute Immature Granulocyte (auto 0.02 0-1 K/uL Segmented Neutrophils % 66 40-70 % Band Neutrophils % 21 H 0-2 % Lymphocytes % (Manual) 9 L 22-44 % Monocytes % (Manual) 1 L 2-9 % Nucleated Red Blood Cells 0.0 0.0-0.19 % Differential Comment MANUAL DIFFERENTIAL Reactive Lymphocytes 3 H 0-0 % White Cell Morphology Comment REACTIVE LYMPHS 1+ Platelet Morphology Comment See comments Red Blood Cell Morphology See comments Chemistry Labs: Test 07/18/25 11:35 07/18/25 03:56 07/17/25 10:50 Range/Units Whole Blood Glucose 113 H 70-110 MG/DL Bedside Glucose Comment Notified Nurse Sodium Level 134 L 136-145 mmol/L Potassium Level 4.7 3.5-5.1 mmol/L Chloride Level 95 L 101-111 mmol/L Carbon Dioxide Level 31 21-32 mmol/L Blood Urea Nitrogen 33 H 7-18 mg/dL Creatinine 4.0 H 0.5-1.0 mg/dL Glomerular Filtration Rate Calc 10 >90 mL/min Random Glucose 155 H 70-105 mg/dL Lactic Acid Level 1.6 0.8-2.5 mmol/L Total Calcium 8.1 L 8.5-10.1 mg/dL Phosphorus Level 6.2 H 2.5-4.9 mg/dL Magnesium Level 1.90 1.80-2.40 mg/dL Total Bilirubin 0.3 0.2-1.0 mg/dL Direct Bilirubin 0.1 0.0-0.3 mg/dL Aspartate Amino Transf (AST/SGOT) 20 10-37 U/L Alanine Aminotransferase (ALT/SGPT) 12 12-78 U/L Alkaline Phosphatase 97 50-136 U/L Ammonia 11 11-32 umol/L Total Creatine Kinase 34 21-232 U/L B-Type Natriuretic Peptide 1130 H 0-100 pg/mL Total Protein 6.2 6.0-8.3 g/dL Albumin 2.1 L 3.5-5.0 g/dL Amylase Level 43 25-115 U/L Lipase 20 16-77 U/L Procalcitonin 0.72 H 0.05-0.5 ng/mL Hemoglobin A1c 4.5 4.0-6.0 % Estimated Average Glucose (eAG) 82 70-126 mg/dL Troponin I High Sensitivity 48 4-50 ng/L Coagulation Labs: Test 07/17/25 10:50 Range/Units Prothrombin Time 12.1 H 9.6-11.6 SEC Prothromb Time International Ratio 1.16 H 0.85-1.15 Activated Partial Thromboplast Time 42.4 H 26.3-35.5 SEC D-Dimer Quantitative (PE/DVT) 3220 *H 0-500 ng/mL DIAGNOSTICS / RADIOLOGY: [place] [address] [place] [id number] IMAGING REPORT Signed PATIENT: VINAY BAEZA MR#: [id number] : 1935 SEX: F AGE: 89 LOCATION: [facility] ORDER 45 STATUS: ADM IN REPORT#: [id number] SERVICE 44 REASON: pe ORDERING PHYSICIAN: SAIDA ENGEL APRN PROCEDURE: CHES PE - CT CHEST PE PROTOCOL WWO CONT EXAM: CTA examination of the chest. CLINICAL HISTORY: Pulmonary embolism. TECHNIQUE: Thin collimated axial CTA images of the chest were obtained, with sagittal and coronal reformatted images also submitted. A CT scan is done according to ALARA (As Low as Reasonably Achievable). COMPARISON: Prior chest radiograph dated 17 July 2025. FINDINGS: The right transjugular dual-lumen catheter with tip in the cavoatrial junction. The right PICC line tip around the right axillary region. Moderate to large right-sided pleural effusion.Mild to moderate loculated left-sided pleural effusion with subtle wall thickening and small air locules within, probable empyema. No evidence of pneumothorax or mass lesion. No lung nodules. Mild cardiomegaly. No pericardial effusion. Diffuse atherosclerotic calcification of the coronary arteries. Atherosclerotic calcification of the aortic root, aortic arch, and descending thoracic aorta. No thoracic aortic aneurysm or dissection. No filling defect or pulmonary thromboembolism. Mildly dilated pulmonary trunk measuring 3.1 cm probable changes of pulmonary hypertension. A few enlarged pretracheal, precarinal subcarinal lymph nodes are identified, the largest measuring 2.2 cm in the precarinal region. No enlarged axillary or supraclavicular lymph nodes. No focal thyroid abnormality. Mild hiatus hernia. Mild heterogeneous coarse attenuation of the liver with widening of the interlobar fissures and caudate lobe hypertrophy, and probable changes of liver parenchymal disease. Mild splenomegaly. The gallbladder demonstrates hyperdense sludge or tiny calculi within. No obvious features of wall thickening. Moderate right-sided hydronephrosis. The remainder of the visualized upper abdomen is unremarkable. Moderate degenerative changes in the thoracic spine, acromioclavicular, and glenohumeral joints. Surgical along the left lateral and anterior chest wall. No acute or suspicious osseous abnormality. IMPRESSION: Normal contrast opacification of the pulmonary vasculature. No obvious evidence of pulmonary embolism. Mildly dilated pulmonary trunk measuring 3.1 cm, concerning mild pulmonary hypertension. Mild cardiomegaly. Diffuse coronary artery calcifications. Nonaneurysmal atherosclerotic vascular disease of the thoracic aorta. No evidence of dissection. Moderate to large right-sided pleural effusion. Mild to moderate loculated left-sided pleural effusion with subtle wall thickening and small air locules within, probable empyema. Chronic liver parenchymal disease. Mild splenomegaly. Subtle hyperdensity within the gallbladder lumen, probable sludge or calculi. Moderate right-sided hydronephrosis. Compared to the prior study, there is no significant interval change. /[place] DICTATED BY: CONRAD REVELES Jr., MD DATE: 07/17/252257 ELECTRONICALLY SIGNED BY: CONRAD REVELES Jr., MD DATE: 07/17/252257 PATIENT: VINAY BAEZA MR#: [id number] : 1935 SEX: F AGE: 89 LOCATION: [facility] ORDER 1043 STATUS: REG REPORT#: [id number] SERVICE 1042 REASON: sob ORDERING PHYSICIAN: ARIANNE TROY NP PROCEDURE: CXR1VW - CHEST 1VW EXAM: CR Chest, 1 View. CLINICAL HISTORY: sob COMPARISON: Radiograph dated July 02, 2025 Findings: AP view of the chest is submitted. Dual-lumen right IJ central venous catheter tips project over the distal SVC and proximal right atrium. Worsening diffuse interstitial airspace disease bilaterally, presumed reflect pulmonary edema. Moderate to large bilateral effusions. No pneumothorax. Stable cardiomegaly. Interval increased pulmonary vascular congestion. Left chest tube has been removed. Clips project over the left hemithorax. IMPRESSION: 1. Worsening diffuse bilateral pulmonary edema with moderate to large bilateral pleural effusions and increased pulmonary vascular congestion. 2. Dual-lumen right IJ central venous catheter with appropriate tip position. /[facility] DICTATED BY: CONRAD REVELES Jr., MD DATE: 07/17/25 1346 ELECTRONICALLY SIGNED BY: CONRAD REVELES Jr., MD DATE: 07/17/25 1346 ASSESSMENT: End-stage renal disease Fluid overload Pleural effusion Shortness of breath Anemia Hypertension Hyperlipidemia Atrial fibrillation PLAN: Labs, diagnostic, radiologic exams reviewed and interpreted by myself and supervising physician Patient and Family wish to proceed with comfort measures, which we are in agreement with. Discontinue all lab work and dialysis as per family wishesss May use Dilaudid 0.5 mg IV every 6 hours as needed for severe pain Will continue to monitor renal function, anemia, electrolytes Treatment plan discussed with patient Questions were answered We have discussed with the other team physicians in detail about the care plan We will continue to monitor the patient closely ATTESTATION BY PHYSICIAN I have seen and examined the patient. I reviewed the documentation, medical decision making, and treatment plan as noted by the mid-level provider above. I agree with the findings and plan of care. LAY GALLOWAY MD, [facility] Jul 18, 2025 15:14
--- NOTE | 2025-07-18 16:09 | NUR ---
YOBANY met with family to discuss hospice. Family is agreeable to hospice services with Yul[facility] at [facility]. Patricia met with family and got consent for services. DME will be ordered today and as per Patricia, may be all at home by tomorrow. YOBANY will follow up to ensure everything has been delivered to the home. OOHDNR was completed and placed in chart.
[2025-07-18 16:46] LABS: HEPATITIS B CORE AB TOTAL Non-Reactive (Nonreactive); HEPATITIS B SURFACE ANTIBODY Negative (Reactive)
--- NOTE | 2025-07-18 18:01 | NUR ---
Please DC PT order. PT services not rendered at this time, patient going to hospice services.
--- NOTE | 2025-07-18 18:51 | CONS ---
INFECTIOUS DISEASE CONSULTATION NOTE Date of Service: Jul 18, 2025 Reason for Consultation: Patient has a midline and on antibiotics at SNF. Requesting Physician: Felipe BELLAMY HISTORY OF PRESENT ILLNESS: This is a 89-year-old female patient with a history of end-stage renal disease, on dialysis, atrial fibrillation on chronic anticoagulation, urinary tract infection, left breast cancer with mastectomy and reconstruction and left pleural effusion with left pleural drainage catheter placement which was recently removed. Patient was brought in from [facility] for evaluation due to hypoxemia and abnormal chest x-ray. No fever on admission. Patient is on acute hypoxic respiratory failure requiring BiPAP support. A urinalysis was positive and preliminary urine cultures growing Gram-positive rods. Patient has been started on ceftriaxone. 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 REVIEW OF SYSTEMS CONSTITUTIONAL: Denies fever, chills, or fatigue. HEAD/FACE: No signs of trauma. EENT: Denies eye pain, blurred vision, double vision, or light sensitivity. RESPIRATORY: Denies shortness of breath, cough, wheezing. Shortness of breaths. CARDIOVASCULAR: Denies chest pain, palpitation, syncope GASTROINTESTINAL/ABDOMINAL: Denies abdominal pain, constipation, diarrhea, nausea or vomiting. GENITOURINARY: Denies dysuria or hematuria. MUSCULOSKELETAL: Denies joint pain, tenderness, or trauma. INTEGUMENTARY: Denies rash or itchiness. NEUROLOGICAL/PSYCH: Denies anxiety, depression, heat or cold intolerance. PAST MEDICAL HISTORY: End-stage renal disease, on dialysis. Chronic Left pleural effusion Hypertension. Atrial fibrillation, on chronic anticoagulation. Left breast cancer. Hypothyroidism. PAST SURGICAL HISTORY: Left mastectomy. Left breast reconstruction. Left Ayan catheter placement. Hemodialysis catheter. PAST SOCIAL HISTORY: No current use of tobacco, alcohol or any other illicit drug. Currently at [facility] for rehab. FAMILY HISTORY: Noncontributory. Coded Allergies: No Known Drug Allergies (Unverified Allergy, 07/23/13) PHYSICAL EXAM EYES: Anicteric. Pupils equal and reactive. HENT: No oral thrush seen, moist Oral mucosa NECK: Supple, no JVD or thyromegaly. LUNGS: Diminished breath sounds. On BiPAP support. CARDIOVASCULAR: S1, S2 regular. No murmur heard. ABDOMEN: Soft, non tender, bowel sounds present, no organomegaly CENTRAL NERVOUS SYSTEM: Awake, alert, oriented x 3. SKIN: No rashes, no swelling. LYMPHATICS: No peripheral lymphadenopathy. MUSCULOSKELETAL: No joint swelling, erythema or tenderness. EXTREMITIES: No cyanosis or clubbing. BACK: No deformity, no pressure ulcer. GENITOURINARY: No dysuria or hematuria. Vital Sign (Last 24 Hours) 07/18/25 07/18/25 13:50 16:00 Temp 97.9 Pulse 81 Resp 22 B/P (MAP) 145/63 Pulse Ox 99 O2 Delivery N/C High Flow System O2 Flow Rate 10.0 FiO2 60 LABS: Laboratory: Test 07/18/25 16:40 07/18/25 10:25 07/18/25 09:28 07/18/25 03:56 Range/Units Whole Blood Glucose 140 H 70-110 MG/DL Bedside Glucose Comment Notified Nurse Blood Gas Specimen Type Arterial Arterial Blood pH 7.121 *L 7.350-7.450 Arterial Blood Partial Pressure CO2 85 *H 32-45 mmHg Arterial Blood Partial Pressure O2 119.1 H 83.0-108.0 mmHg Arterial Blood HCO3 27.2 21.0-28.0 mmol/L Arterial Blood Oxygen Saturation 96.8 94.0-98.0 % Arterial Blood Base Excess -4.5 L -2.0-3.0 mmol/L Blood Gas Temperature 37.0 35.5-37.0 CELSIUS Blood Gas Respiration Rate 20.0 min. Blood Gas Vent Mode BIPAP 14,5 ROOM AIR FiO2 40.0 % Blood Gas Specimen Comment LR Hepatitis B Surface Antigen. Non-Reactive Nonreactive Hepatitis B Surface Antibody. Negative L Reactive Hepatitis B Core Total Antibody. Non-Reactive Nonreactive Hepatitis C Antibody Non-Reactive Nonreactive White Blood Count 2.2 #L 4.8-10.8 K/uL Red Blood Count 3.51 L 4.00-5.50 MIL/uL Hemoglobin 11.0 L 12.0-16.0 g/dL Hematocrit 37.4 36-48 % Mean Corpuscular Volume 106.6 H 79-99 fL Mean Corpuscular Hemoglobin 31.3 27.0-33.0 pg Mean Corpuscular Hemoglobin Concent 29.4 L 32.0-36.0 g/dL Red Cell Distribution Width 18.0 H 11.0-15.5 % Platelet Count 73 L 130-400 K/uL Mean Platelet Volume 9.7 7.5-10.5 fL Immature Granulocyte % (Auto) 0.9 0-1 % Neutrophils (%) (Auto) 89.4 H 40.0-77.0 % Lymphocytes (%) (Auto) 7.8 L 21.0-51.0 % Monocytes (%) (Auto) 1.4 L 3.0-13.0 % Eosinophils (%) (Auto) 0.0 0.0-8.0 % Basophils (%) (Auto) 0.5 0.0-5.0 % Neutrophils # (Auto) 2.0 1.8-7.7 K/uL Lymphocytes # (Auto) 0.2 L 1.0-4.8 K/uL Monocytes # (Auto) 0.0 L 0.1-1.0 K/uL Eosinophils # (Auto) 0.00 0.00-0.70 K/uL Basophils # (Auto) 0.01 0.00-0.20 K/uL Absolute Immature Granulocyte (auto 0.02 0-1 K/uL Segmented Neutrophils % 66 40-70 % Band Neutrophils % 21 H 0-2 % Lymphocytes % (Manual) 9 L 22-44 % Monocytes % (Manual) 1 L 2-9 % Nucleated Red Blood Cells 0.0 0.0-0.19 % Differential Comment MANUAL DIFFERENTIAL Reactive Lymphocytes 3 H 0-0 % White Cell Morphology Comment REACTIVE LYMPHS 1+ Platelet Morphology Comment See comments Red Blood Cell Morphology See comments Sodium Level 134 L 136-145 mmol/L Potassium Level 4.7 3.5-5.1 mmol/L Chloride Level 95 L 101-111 mmol/L Carbon Dioxide Level 31 21-32 mmol/L Blood Urea Nitrogen 33 H 7-18 mg/dL Creatinine 4.0 H 0.5-1.0 mg/dL Glomerular Filtration Rate Calc 10 >90 mL/min Random Glucose 155 H 70-105 mg/dL Lactic Acid Level 1.6 0.8-2.5 mmol/L Total Calcium 8.1 L 8.5-10.1 mg/dL Phosphorus Level 6.2 H 2.5-4.9 mg/dL Magnesium Level 1.90 1.80-2.40 mg/dL Total Bilirubin 0.3 0.2-1.0 mg/dL Direct Bilirubin 0.1 0.0-0.3 mg/dL Aspartate Amino Transf (AST/SGOT) 20 10-37 U/L Alanine Aminotransferase (ALT/SGPT) 12 12-78 U/L Alkaline Phosphatase 97 50-136 U/L Ammonia 11 11-32 umol/L Total Creatine Kinase 34 21-232 U/L B-Type Natriuretic Peptide 1130 H 0-100 pg/mL Total Protein 6.2 6.0-8.3 g/dL Albumin 2.1 L 3.5-5.0 g/dL Amylase Level 43 25-115 U/L Lipase 20 16-77 U/L Procalcitonin 0.72 H 0.05-0.5 ng/mL Test 07/17/25 19:11 07/17/25 15:15 07/17/25 12:10 07/17/25 10:50 Range/Units Urine Color DARK-ORANGE YELLOW Urine Appearance TURBID CLEAR Urine pH 6.0 5.0-8.0 Urine Specific [place] 1.014 1.001-1.031 Urine Protein 200 H NEGATIVE mg/dL Urine Glucose (UA) NEGATIVE NEGATIVE mg/dL Urine Ketones NEGATIVE NEGATIVE mg/dL Urine Occult Blood MODERATE H NEGATIVE Urine Nitrate NEGATIVE NEGATIVE Urine Bilirubin NEGATIVE NEGATIVE mg/dL Urine Urobilinogen 0.2 0.2-1.0 mg/dL Urine Leukocyte Esterase 500 H NEGATIVE Marcus/uL Urine RBC 51-100 H 0-1 /HPF Urine WBC TNTC H 0-1 /HPF Urine WBC Clumps (Auto) MANY 0-1 /HPF Urine Squamous Epithelial Cells MANY 0-2 /HPF Urine Bacteria MOD None Seen /HPF Urine Opiates Screen NEGATIVE NEGATIVE Urine Barbiturates Screen NEGATIVE NEGATIVE Urine Phencyclidine Screen NEGATIVE NEGATIVE Urine Amphetamines Screen NEGATIVE NEGATIVE Urine Benzodiazepines Screen NEGATIVE NEGATIVE Urine Cocaine Screen NEGATIVE NEGATIVE Urine Marijuana (THC) Screen NEGATIVE NEGATIVE Hemoglobin (Blood Gas) 12.0 12.0-16.0 g/dL Sodium (Blood Gas) 133 L 136-145 MMOL/L Bedside Potassium (Blood Gas) 4.1 3.4-4.5 MMOL/L Bedside Chloride (Blood Gas) 96 L 98-107 MMOL/L Bedside Glucose (Blood Gas) 93 65-95 MG/DL Bedside Ionized Calcium (Blood Gas) 1.16 1.15-1.33 MMOL/L Bedside Lactic Acid (Blood Gas) 1.35 H 0.36-0.75 MMOL/L Blood Gas Flow-by 4.00 0.00-15.00 L/min Influenza Type A Antigen Negative For Type A NEGATIVE Influenza Type B Antigen Negative For Type B NEGATIVE SARS-CoV-2, RNA, NAAT NEGATIVE SARS CoV-2 NEGATIVE Prothrombin Time 12.1 H 9.6-11.6 SEC Prothromb Time International Ratio 1.16 H 0.85-1.15 Activated Partial Thromboplast Time 42.4 H 26.3-35.5 SEC D-Dimer Quantitative (PE/DVT) 3220 *H 0-500 ng/mL Hemoglobin A1c 4.5 4.0-6.0 % Estimated Average Glucose (eAG) 82 70-126 mg/dL Troponin I High Sensitivity 48 4-50 ng/L DIAGNOSTICS / RADIOLOGY: PATIENT: VINAY BAEZA ACCT: [id number] LOC: [facility] U: [id number] AGE/SX: 89/F ROOM: [facility] RE07/17/[address]: JLUIS JAFFE MD : 1935 BED: 1 DIS: STATUS: ADM IN TLOC: SPEC: [id number] FATUMA: 07/17/25 STATUS: RES REQ: [id number] RECD: 07/18/[address] [facility] [address]: SAIDA ENGEL APRN SOURCE: URINE CATH ENTR: 07/18/[address]: LAY GALLOWAY MD SPDESC: CATHERIZED JLUIS JAFFE MD, JULIO A MD SY,JORGE Lozano MD ORDERED: AERO ID & SENS - Procedure Result Veronika Date-Time AEROBIC ID & SENSITIVITIES Preliminary 07/18/25-1153 MRL COLONY DESCRIPTION: DAY 1: COLONY COUNT: >100,000 CFU/ML GRAM NEGATIVE RODS IDENTIFICATION AND SENSITIVITY TO FOLLOW ASSESSMENT: Acute hypoxic respiratory failure requiring BiPAP support. Urinary tract infection. Bilateral large pleural effusion. History of Left pleural effusion with Ayan catheter removal. Pancytopenia. End-stage renal failure. Atrial fibrillation, on Eliquis. Hx of Left pleural effusion with left [place] catheter placement. History of left breast cancer. Debility. PLAN: Continue oxygen support. 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 Currently on ceftriaxone IV. Avoid nephrotoxic medications. Thank you for allowing ID to participate in the care of this patient. This case was reviewed and discussed with my supervising physician Dr. Meyer and the above assessment and plan was formulated and agreed upon. ATTESTATION BY PHYSICIAN I have seen and examined the patient. I reviewed the documentation, medical decision making, and treatment plan as noted by the mid-level provider above. I agree with the findings and plan of care. ADRIANA MEYER MD, MIRTA L [facility] Jul 18, 2025 18:51
--- NOTE | 2025-07-18 20:35 | NUR ---
ASSESS SHIFT ASSESSMENT DONE, PLEASE REFER TO CHART. WAFFLE MATTRESS PLACED IN BED. BARRIER CREAM APPLIED TO FREDERICK-AREA AND COCCYX AREA. RE-POSITIONED COMFORTABLY IN WITH TO HER SIDE. KEPT ON 10LPM VIA NC WITH OXYMIZER. PT KEPT WARM AND DRY. PT'S SON AT BEDSIDE AND WILL STAY THE NIGHT.
[2025-07-19] VITALS (7 sets, daily range): BP systolic 102–127; BP diastolic 53–59; PULSE 73–79; RESP 16–21; TEMP 97.7–97.9; O2SAT 92–97
--- NOTE | 2025-07-19 05:30 | NUR ---
ROUNDS PT SLEPT AT LONG INTERVALS DURING THE SHIFT. MAINTAINED ON HIGH FLOW O2 VIA NC. MIDLINE DRESSING CHANGED USING [employer]SE[employer] TECHNIQUE. BOTH PORTS FLUSHES WELL. KEPT WARM AND DRY. FOR MORE CARE.
[2025-07-19 05:59] LABS: NUCLEATED RED BLOOD CELLS 0.0 % (0.0-0.19); PLATELET COUNT (AUTO) 110.0 K/uL (130-400); RED BLOOD CELL COUNT(AUTO) 3.85 MIL/uL (4.00-5.50); RED CELL DISTRIBUTION WIDTH 17.8 % (11.0-15.5); WHITE BLOOD COUNT (AUTO) 3.2 K/uL (4.8-10.8)
[2025-07-19 06:21] LABS: ASPARTATE AMINOTRANSFERASE 23.0 U/L (10-37); CREATININE 5.1 mg/dL (0.5-1.0); GLOMERULAR FILTR. RATE CALC 8.0 mL/min (>90); GLUCOSE,RANDOM 138.0 mg/dL (70-105); SODIUM SERUM 130.0 mmol/L (136-145); TOTAL PROTEIN, SERUM 6.6 g/dL (6.0-8.3); UREA NITROGEN, BLOOD 53.0 mg/dL (7-18)
[2025-07-19] MEDS ORDERED: ZOLP-684 PO (09:56)
[2025-07-19] MEDS ORDERED: Lactulose 20 Gm/30 Ml Udcup PO (09:56)
[2025-07-19] MEDS ORDERED: PRED20TA3 PO (09:56)
[2025-07-19] MEDS ORDERED: ALBU2.5V2 IH (09:57)
[2025-07-19] MEDS ORDERED: IPRNEB IH (09:57)
[2025-07-19] MEDS ORDERED: Folic Acid/Vitamin B Comp W-C PO (09:57)
--- NOTE | 2025-07-19 10:09 | DS ---
Discharge Summary Hospital Course Summary: DATE OF ADMISSION:[07/17/2025] DATE OF DISCHARGE:[07/19/2025] DISPOSITION:[[facility] with hospice] CONDITION:[Hospice] CONSULTANTS:[[facility], email operations manager, ID, hospice] FOLLOW UP APPOINTMENTS:[PCP 2 to 3 days. Hospice on time of arrival to [facility]] PROCEDURES:[None] IMAGING: report attached to summary MICROBIOLOGY: report attached to summary ACTIVITY:[Bed-bound] HOME MEDICATIONS: see med recc NEW MEDICATIONS:[All the medications from hospitalization and home continued at the discharged to facility. Med rec to be performed as per hospice VISION CARE ASSOCIATE/DR] EMERGENCY INSTRUCTIONS: The patient was instructed to present to the nearest Emergency departmentr or call 911 once their symptoms will return or worsen Applique Cutter(s): Patient is 89 years old female with a past medical history of ESRD dialysis TTS, anemia, dysphagia, hyperlipidemia, MRSA of unknown source, thrombocytopenia, E coli in the urine, UTI, hypertension, muscle wasting and atrophy, uropathy, GERD, pancytopenia, pneumonia, AFib, malnutrition, who [facility] after chest x-ray that showed pneumonia which was done about two days prior the admission. As per for 17 patient was very short of breaths abruptly and desatted to 87%. Patient was placed on nasal cannula 3 to 4 L. facility was worried that patient might has a pulmonary embolism and sent patient for evaluation to [facility]. Chest x- ray was performed and showed bilateral pulmonary edema, large pleural effusion and increased pulmonary vascular congestion. CTA for PE was performed as well and showed normal contrast opacification of pulmonary vasculature. No obvious evidence of pulmonary embolism. Dilated pulmonary trunk measuring 3.1 cm concerning for mild pulmonary hypertension. Mild cardiomyopathy. Diffuse coronary artery calcifications. Non aneurysmal atherosclerotic vascular disease of the thoracic aorta. No evidence of dissection. Moderate to large right side pleural effusion. Mild to moderate loculated left-sided pleural effusion with subtalar wall thickening and small air loculi within probably empyema. Compared to the prior study there is no significant interval changes. Chronic liver per chest wall disease mild splenomegaly. Subtotal hyperdensity within the gallbladder lumen. Probably sludge or calculi. Moderate right-sided hydronephrosis. Urine culture and blood culture was obtained ID was consulted. [facility] was also consulted for end-stage renal disease needing dialysis email operations manager was consulted for large pleural effusions and possible pneumonia. Patient's ABG gases showed pH of 7.12, pCO2 of 85, PO2 119.1. At the time of evaluation patient's , son and [id number] were present in the room. Long discussion regarding the current condition, guarded and poor prognosis as well as has a goals of care was explained/evaluated with the family. Patient was made DNR/DNI and opted to consult hospice. Case management was consulted. Today patient was accepted to [facility] with the hospice care. Procedure(s): REVIEW OF SYSTEMS CONSTITUTIONAL: Denies fevers, chills, or night sweats. No unintentional weight loss reported. NEUROLOGICAL: Denies headache, amaurosis fugax, motor weakness, sensory deficit, vertigo/spinning sensation, gait abnormalities, or tremors. ENT: No hearing loss, otalgia, otorrhea, rhinitis, rhinorrhea, hoarseness, or sore throat. CARDIOVASCULAR: Denies any exertional angina, dyspnea on exertion, orthopnea, paroxysmal nocturnal dyspnea, palpitations, life-threatening arrhythmias, claudication. PULMONARY: Denies any cough, phlegm/sputum, hemoptysis, pleuritic chest pain. Complains of shortness of breaths SLEEP: Denies morning headaches, daytime somnolence or napping. Denies difficulty falling asleep, staying asleep, waking from sleep. Denies knowledge of snoring. GASTROINTESTINAL: Denies any type of dysphagia to either liquids or solids. Denies nausea, vomiting, pyrosis, early satiety, abdominal pain, diarrhea, constipation, or changes in stool consistency or caliber. Denies coffee-ground emesis, hematemesis, hematochezia, or melanotic stools. GENITOURINARY: Denies frequency, urgency, nocturia, hematuria or incontinence (Storage/Irritative symptoms.) Low urinary stream, straining to void, urinary intermittency or hesitancy, splitting of the voiding stream, terminal dribbling. ENDOCRINOLOGIC: Denies polyuria, polydipsia, polyphagia or heat/cold intolerances. HEMATOLOGIC: Denies thrombophilia/previous clots, or coagulopathy/bleeding disorders. ONCOLOGIC: Denies personal history of malignancy. DERMATOLOGIC: Denies rashes or pruritus. PSYCHIATRIC: Denies any suicidal or homicidal ideation. Denies hallucinations. PHYSICAL EXAM GENERAL APPEARANCE: The patient is awake, alert, and oriented, in no acute cardiopulmonary distress. NEUROLOGICAL: Cranial nerves II-XII grossly intact. Motor is 5/5 in bilateral upper and lower extremities proximal to distal. No sensory deficits. HEENT: Face is symmetric. Pupils are equal and reactive. Extraocular movements are intact. NECK: Supple. No JVD. No thyromegaly. No submental, submandibular, pre- /postauricular, occipital or supraclavicular lymphadenopathy. CHEST: Normal chest expansion. No Telemetry. LUNGS: Absence of any rales, rhonchi or any wheezing. CARDIOVASCULAR: Regular. S1 and S2 normal. No appreciable rubs, murmurs or gallops. ABDOMEN: Soft, nontender, and nondistended. There is no rebound, voluntary guarding, or rigidity. : Deferred. No Victor. EXTREMITIES: Non-edematous and not cyanotic. No clubbing. Good capillary refill. SKIN: No skin breakdown. 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 dysfunction as per 2D echo 06/10/2025] Home Medications: Reported Medications Folic Acid (Folic Acid) 0.4 Mg Tablet, 1 TAB PO BID for 30 Days, #30 TAB 0 Refills 06/30/25 Cefazolin Sodium (Cefazolin Sodium) 1 Gram Vial, 1 GM IJ AD, VIAL 06/30/25 Lactulose (Lactulose) 10 Gram Packet, 20 GM PO [id number] for NEEDED FOR BOWEL MOVEMENT, PKT 06/30/25 Acetaminophen (Tylenol) 325 Mg Tablet, 325 MG PO Q4PRN for MILD PAIN, TAB 06/30/25 Epoetin Merrick (Procrit) 20,000 Unit/Ml Vial, [id number] UNIT IJ AD, VIAL 06/30/25 Pantoprazole Sodium (Pantoprazole Sodium) 40 Mg Tablet.dr, 40 MG PO DAILY, TAB 06/30/25 Amiodarone HCl (Amiodarone HCl) 200 Mg Tablet, 200 MG PO DAILY, TAB 06/30/25 Metoprolol Tartrate (Metoprolol Tartrate) 25 Mg Tablet, 25 MG PO BID, TAB 06/30/25 Bumetanide (Bumetanide) 1 Mg Tablet, 1 MG PO DAILY, TAB 06/30/25 Nystatin (Nystatin) 100,000 Unit/Gram Cream.gm., 1 APPL TP TID for 5 Days, #15 GM 0 Refills apply to affected area(s) 06/30/25 Zinc Oxide (Desitin) 13 % Cream..g., 1 APPL TP QID for 5 Days, #57 GM 0 Refills 06/30/25 Apixaban (Eliquis) 2.5 Mg Tablet, 2.5 MG PO BID, TAB 11/17/21 Atorvastatin Calcium (LIPITOR) 40 Mg Tablet, 40 MG PO DAILY, TAB 10/03/21 Time spent arranging discharge: 31-60 minutes ATTESTATION BY PHYSICIAN I have seen and examined the patient. I reviewed the documentation, medical decision making, and treatment plan as noted by the mid-level provider above. I agree with the findings and plan of care. JLUIS JAFFE MD, KATARZYNA B APRN Jul 19, 2025 10:09
--- NOTE | 2025-07-19 12:06 | NUR ---
YOBANY made contact with Patricia from [facility] [phone] to get an update on DME and dc. As per Patricia, all DME is at [place] the thing that is pending is an order from the pt's PCP that will admit her into an assisted living. Patricia reported that Dr. crouch is currently working on this and will inform YOBANY when the task is complete.
--- NOTE | 2025-07-19 12:29 | NUR ---
PATIENT IS DISCHARGED. ATTEMPTED TO CALL REPORT TO [facility]IZAB[facility]. NO ONE ABLE TO TAKE MY CALL AT THIS TIME. LEFT VOICEMAIL TO NURSE. WILL TRY ANOTHER ATTEMPT.
--- NOTE | 2025-07-19 13:57 | NUR ---
PATIENT IS DISCHARGED. MIDLINE TAKEN OUT WITH CATHETER INTACT. BY SHI VASQUEZ. REPORT GIVEN TO RICHY AT [facility]. EDUCATION GIVEN TO FAMILY. CURRENTLY WAITING TO EMS TO TAKE PATIENT.
--- NOTE | 2025-07-19 15:18 | PN ---
[facility] PROGRESS NOTE Date Patient Seen: Jul 19, 2025 Time of Visit: 15:18 Supervising Physician: Dr. Gonzalez Consulting Physician: Dr Ruelas Outpatient Specialists: [ ] Inpatient Consults: [ ] PROBLEM LIST: Acute hypercapnic Respiratory Failure, POA Pleural Effusion, Bilateral,POA Possible hospital-acquired pneumonia ESRD on HD via right upper chest HD catheter, HD schedule TTS, got dialyzed yesterday, POA Chronic atrial fibrillation, on chronic anticoagulation Chronic anemia, POA Chronic thrombocytopenia, POA Hypertension, POA PLAN: Continue with BiPAP Continue with dialysis Family currently seeking hospice INTERVAL HISTORY: Patient evaluated at bedside with son present, she is currently on 5 L high-flow nasal cannula. Patient continues on antibiotics for hospital-acquired pneumonia at this time however family's pending hospice authorization today. Our recommendations remain the same while the patient is admitted. We will send off the case at this time as the patient is preparing for comfort measures with [facility] hospice to transport the patient home. REVIEW OF SYSTEMS: 12 point ROS reviewed with patient. Pertinent positives mentioned above. Otherwise negative. PHYSICAL EXAM: GENERAL: alert, weak, awake oriented x 3 HEENT: EOMI, Sclera non icteric, moist mucosa NECK: Supple, no JVD, trachea midline LUNGS: On BiPAP, diminished bibasilar area on auscultation HEART: Regular rate and rhythm. Normal S1 and S2, without murmurs ABD: Abdomen soft, nontender. Bowel sounds present EXT: No clubbing cyanosis or edema NEURO: Alert and oriented to person, follows commands Vital Signs (last 8hr) Date Time Temp Pulse Resp B/P (MAP) Pulse Ox O2 Delivery O2 Flow Rate FiO2 07/19/25 11:14 77 18 07/19/25 11:13 20 N/Cannula Oximizer Hi LPM 5.0 40 07/19/25 08:00 92 N/C Oxymizer Hi LPM* 10 99 07/19/25 08:00 97.7 73 16 102/58 92 N/C High Flow System 5.0 LABS: Hematology Labs: Test 07/19/25 05:44 07/18/25 03:56 Range/Units White Blood Count 3.2 L 4.8-10.8 K/uL Red Blood Count 3.85 L 4.00-5.50 MIL/uL Hemoglobin 11.8 L 12.0-16.0 g/dL Hematocrit 40.7 36-48 % Mean Corpuscular Volume 105.7 H 79-99 fL Mean Corpuscular Hemoglobin 30.6 27.0-33.0 pg Mean Corpuscular Hemoglobin Concent 29.0 L 32.0-36.0 g/dL Red Cell Distribution Width 17.8 H 11.0-15.5 % Platelet Count 110 #L 130-400 K/uL Mean Platelet Volume 9.0 7.5-10.5 fL Nucleated Red Blood Cells 0.0 0.0-0.19 % Immature Granulocyte % (Auto) 0.9 0-1 % Neutrophils (%) (Auto) 89.4 H 40.0-77.0 % Lymphocytes (%) (Auto) 7.8 L 21.0-51.0 % Monocytes (%) (Auto) 1.4 L 3.0-13.0 % Eosinophils (%) (Auto) 0.0 0.0-8.0 % Basophils (%) (Auto) 0.5 0.0-5.0 % Neutrophils # (Auto) 2.0 1.8-7.7 K/uL Lymphocytes # (Auto) 0.2 L 1.0-4.8 K/uL Monocytes # (Auto) 0.0 L 0.1-1.0 K/uL Eosinophils # (Auto) 0.00 0.00-0.70 K/uL Basophils # (Auto) 0.01 0.00-0.20 K/uL Absolute Immature Granulocyte (auto 0.02 0-1 K/uL Segmented Neutrophils % 66 40-70 % Band Neutrophils % 21 H 0-2 % Lymphocytes % (Manual) 9 L 22-44 % Monocytes % (Manual) 1 L 2-9 % Differential Comment MANUAL DIFFERENTIAL Reactive Lymphocytes 3 H 0-0 % White Cell Morphology Comment REACTIVE LYMPHS 1+ Platelet Morphology Comment See comments Red Blood Cell Morphology See comments Chemistry Labs: Test 07/19/25 05:44 07/19/25 05:18 07/18/25 16:40 07/18/25 03:56 Range/Units Sodium Level 130 L 136-145 mmol/L Potassium Level 5.6 H 3.5-5.1 mmol/L Chloride Level 94 L 101-111 mmol/L Carbon Dioxide Level 27 21-32 mmol/L Blood Urea Nitrogen 53 H 7-18 mg/dL Creatinine 5.1 H 0.5-1.0 mg/dL Glomerular Filtration Rate Calc 8 >90 mL/min Random Glucose 138 H 70-105 mg/dL Total Calcium 8.0 L 8.5-10.1 mg/dL Magnesium Level 2.10 1.80-2.40 mg/dL Total Bilirubin 0.5 0.2-1.0 mg/dL Aspartate Amino Transf (AST/SGOT) 23 10-37 U/L Alanine Aminotransferase (ALT/SGPT) 10 L 12-78 U/L Alkaline Phosphatase 93 50-136 U/L Total Protein 6.6 6.0-8.3 g/dL Albumin 2.4 L 3.5-5.0 g/dL Whole Blood Glucose 136 H 70-110 MG/DL Bedside Glucose Comment Notified Nurse Lactic Acid Level 1.6 0.8-2.5 mmol/L Phosphorus Level 6.2 H 2.5-4.9 mg/dL Direct Bilirubin 0.1 0.0-0.3 mg/dL Ammonia 11 11-32 umol/L Total Creatine Kinase 34 21-232 U/L B-Type Natriuretic Peptide 1130 H 0-100 pg/mL Amylase Level 43 25-115 U/L Lipase 20 16-77 U/L Procalcitonin 0.72 H 0.05-0.5 ng/mL DIAGNOSTICS / RADIOLOGY RESULTS: [ ] PLAN NEURO: Minimize central acting medications as possible. Maintain fall precautions, adequate lighting during the day PULMONARY: Supplemental 02 as needed. Maintain aspiration precautions at all times CARDIOVASCULAR: Follow hemodynamics. Vital signs per facility protocol GI & NUTRITION: Continue with nutritional support. Continue stool softeners and laxatives as needed. KIDNEYS & ELECTROLYTES: Strict monitoring of intake, output and overall fluid balance. Avoid nephrotoxic medications to the extent possible. Medications to be dosed according to renal function. Monitor electrolytes and replace as needed ENDOCRINE: Maintain blood glucose between 100-180 at all times. Hypoglycemia protocol in place INFECTIOUS DISEASE: Trend temperature, WBC and procalcitonin level Follow cultures, deescalate antibiotics as soon as possible. Panculture if new onset fever ONCOLOGY/HEMATOLOGY/COAGULATION: Monitor for s/s of bleeding Monitor hemoglobin, coagulation studies as needed SKIN: Pressure ulcer prevention per facility protocol Specialty mattress ORTHO/REHAB: Continue PT/OT Prophylaxis: Continue GI and DVT prophylaxis Code Status: Full Resuscitation Disposition: TBD Other: SELENE GERARDO Jul 19, 2025 15:18
== END 2025-07-19 14:30 | disposition hospice, home (50) | DRG 175 ==
LOC: EDH 10:30 → EDHIP 12:38 → 4BH 22:20
PROVIDERS: ADMIT Internal Medicine; ATTEND Internal Medicine
PROC: 5A09357 Assistance with Respiratory Ventilation, Less than 24 Consecutive Hours, Continuous Positive Airway Pressure (ICD-10-PCS; principal; 2025-07-17)
PROC: 5A09357 Assistance with Respiratory Ventilation, Less than 24 Consecutive Hours, Continuous Positive Airway Pressure (ICD-10-PCS; 2025-07-18)
DX: I26.99 Other pulmonary embolism without acute cor pulmonale (principal); I50.43 Acute on chronic combined systolic (congestive) and diastolic (congestive) heart failure; J96.01 Acute respiratory failure with hypoxia; N18.6 End stage renal disease; J96.02 Acute respiratory failure with hypercapnia; J18.9 Pneumonia, unspecified organism; I13.2 Hypertensive heart and chronic kidney disease with heart failure and with stage 5 chronic kidney disease, or end stage renal disease; E87.1 Hypo-osmolality and hyponatremia; D61.818 Other pancytopenia; N13.6 Pyonephrosis; E11.649 Type 2 diabetes mellitus with hypoglycemia without coma; E11.22 Type 2 diabetes mellitus with diabetic chronic kidney disease; Z99.2 Dependence on renal dialysis; I48.91 Unspecified atrial fibrillation; I25.10 Atherosclerotic heart disease of native coronary artery without angina pectoris; Z66 Do not resuscitate; I27.20 Pulmonary hypertension, unspecified; K21.9 Gastro-esophageal reflux disease without esophagitis; E78.00 Pure hypercholesterolemia, unspecified; E03.9 Hypothyroidism, unspecified; Z51.5 Encounter for palliative care; Z79.01 Long term (current) use of anticoagulants; Z82.49 Family history of ischemic heart disease and other diseases of the circulatory system; Z83.3 Family history of diabetes mellitus; Z85.3 Personal history of malignant neoplasm of breast; Z86.711 Personal history of pulmonary embolism; Z90.12 Acquired absence of left breast and nipple; Z79.2 Long term (current) use of antibiotics
CPT/HCPCS: 36415; 36600; 71045; 71270; 80048; 80053; 80076; 80305; 81001; 82140; 82150; 82435; 82550; 82803; 82947; 82948; 83036; 83605; 83690; 83735; 83880; 84100; 84132; 84145; 84295; 84484; 85018; 85025; 85027; 85378; 85610; 85730; 86704; 86706; 86803; 87040; 87086; 87186; 87340; 87635; 87804; 93005; 94640; 94660; 94664; 96374; 96375; 99285; G0378; J0696; J2919; J3490; Q9967